=== PATIENT | female | born 1935 | race Caucasian/White ===

== ENCOUNTER 2016-07-31 11:37 | Emergency (ER) | payer OTHER, MEDICARE ==
[~2016-07-31] VITALS: Ht 152.4 cm; Wt 93.9 kg
[~2016-07-31 11:37] MED LIST: ALLOPURINOL100 M1 PO; ANTIVERT 25MG #1 PAC PO; ASPIRIN81 M4 PO; ATIVAN0.5 M1 PO; ATORVASTATIN CA10 MG PO; ATORVASTATIN CA40 MG PO; CELEBREX200 M1 PO; CELECOXIB200 MG PO; CYMBALTA30 M1 PO; DURAGESIC1 EACH TOP; DURAGESIC25 MCG TD; FUROSEMIDE20 M1 PO; HEPARIN 2525000 UNIT IV; HYDROCO/APAP TAB 7.5 PO; K-TAB ER20 MEQ PO; LANSOPRAZOLE30 M2 PO; LOPRESSOR 12.12.5 MG PO; LORTAB 7.5/5001 TAB PO; LOVAZA1 G1 PO; LYRICA75 M1 PO; MICARDIS80 M1 PO; MICARDIS80 MG PO; OS-CAL 500+D31 EACH PO; TOPROL XL25 M1 PO; VICODIN7.5-300 PO; [UNRECOGNIZED DRUG - OTHER] PO
[2016-07-31] MEDS ORDERED: DAILY MULTIPLE1 EACH PO (12:21)
[2016-07-31] MEDS ORDERED: ATORVASTATIN CA10 M1 PO (12:23)
[2016-07-31] MEDS ORDERED: HYDROCODON-ACE1 EAC6 PO (12:26)
[2016-07-31] MEDS ORDERED: MECLIZINE HCL25 MG PO ×2 (12:28→13:51)
[2016-07-31] MEDS ORDERED: MICARDIS HCT 81 EAC1 PO (12:30)
--- NOTE | 2016-07-31 13:04 | ED SKIN/ALLERGY COMPLAINT ---
History of Present Illness General Chief Complaint: General Adult Stated Complaint: VERTIGO Source: patient Exam Limitations: no limitations Vital Signs & Intake/Output Vital Signs & Intake/Output Vital Signs Date Time Temp Pulse Resp B/P B/P Pulse O2 O2 Flow FiO2 Mean Ox Delivery Rate 07/31 1354 96.2 60 18 136/75 100 Room Air 07/31 1147 95 07/31 1139 97.5 63 18 172/82 94 Room Air ED Intake and Output 08/01 0000 07/31 1200 Intake Total Output Total Balance Patient 207 lb Weight Allergies Coded Allergies: latex (HIVES 07/31/16) Reconcile Medications Allopurinol 100 MG TABLET 1 TAB PO DAILY GOUT (Reported) Aspirin (Aspirin*) 81 MG TAB.CHEW 1 TAB PO DAILY HEART HEALTH (Reported) Atorvastatin Calcium 10 MG TABLET 1 TAB PO DAILY CHOLESTEROL (Reported) Calcium Carbonate/Vitamin D3 (Os-Akil 500+D3 Caplet) 500 MG-600 TABLET 1 TAB PO BID SUPPLEMENT (Reported) Celecoxib (Celebrex) 200 MG CAPSULE 1 CAP PO BID PAIN (Reported) Duloxetine Hydrochloride (Cymbalta) 30 MG CAPSULE.DR 1 CAP PO DAILY DEPRESSION (Reported) Fentanyl (Duragesic) 25 MCG/HOUR PATCH.TD72 1 PAT TOP Q48 PAIN (Reported) Fluconazole (Diflucan) 100 MG TABLET 100 MG PO DAILY Anabella Furosemide 20 MG TABLET 1 TAB PO DAILY WATER PILL (Reported) Hydrocodone/Acetaminophen (Hydrocodon-Acetaminoph 7.5-300) 7.5 MG-300 MG TABLET 1 TAB PO DAILY PAIN (Reported) Lansoprazole 30 MG CAPSULE.DR 1 CAP PO DAILY GI (Reported) Lorazepam (Ativan) 0.5 MG TABLET 1 TAB PO DAILY ANXIETY (Reported) Meclizine HCl 25 MG TABLET 1 TAB PO TIDPRN PRN DIZZINESS (Reported) Meclizine HCl 25 MG TABLET 1 TAB PO TIDPRN vertigo Metoprolol Succ XL (Toprol XL) 25 MG TAB 1 TAB PO DAILY HEART (Reported) Multivitamin (Daily Multiple Vitamin) 1 EACH TABLET 1 TAB PO DAILY VITAMIN SUPPORT (Reported) Nystatin 50 MILLION UNIT POWDER.EA. 1 PATRICIA TOP BID anabella [place]-3 Acid Ethyl Esters (Lovaza) 1 GRAM CAPSULE 2 CAP PO BID SUPPLEMENT ( Reported) Potassium Chloride (K-Tab ER) 20 MEQ TABLET.ER 1 TAB PO DAILY SUPPLEMENT ( Reported) Pregabalin (Lyrica) 75 MG CAPSULE 1 CAP PO BID PAIN (Reported) Telmisartan/Hydrochlorothiazid (Micardis Hct 80-25 MG Tablet) 80 MG-25 MG TABLET 1 TAB PO BID BP (Reported) Triage Note: BIBA FROM HOME C/O VERTIGO WITH HX OF SAME AND RED ITCHY RASH FOR SEVERAL DAYS TO RIGHT ABD/FLANK. PT REPORTS SHE HAS A HX OF VERTIGO, WAS UNABLE TO MAKE APPT WITH HER ENT AND IS C/O POSITIONAL DIZZINESS. ALSO C/O "THE ITCHING IS GETTING WORSE" TO THE RASH WHICH IS RED AND NOT RAISED, USING TOPICAL OTC OINTMENTS WITH NO RELIEF, DENIES ANY SYSTEMIC/RESP SYMPTOMS "I JUST HAD MY PULMONARY AND CARDIAC CHECKUPS AND EVERYTHING WAS GREAT." Triage Nurses Notes Reviewed? yes HPI: 81 yo F PMH HTN, HLD,CAD/PR, meningioma presenting with vertigo, rash. Vertigo starting last night while watching TV, patient turned her head to the left and had onset of dizziness, described as room spinning, waxing and waning intensity since that time, triggered by head movements, similar to previous episodes of vertigo. Denies fevers, chills, chest pain, palpitations, shortness of breath, neck pain, headache, or focal neurologic symptoms. Rash starting 3-4 days ago, began in intertriginous zone on lower abdomen, spread of right side, now underneath right breast, pruritic but not painful. (DANIEL POZO,SAMUEL) Past History Travel History Traveled to [place] past 21 day No Medical History Any Pertinent Medical History? 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 Yes (SAMUEL SANCHEZ MD) Review of Systems Review of Systems Constitutional: Reports: no symptoms. EENTM: Reports: no symptoms. Respiratory: Reports: no symptoms. Cardiovascular: Reports: no symptoms. GI: Reports: no symptoms. Genitourinary: Reports: no symptoms. Musculoskeletal: Reports: no symptoms. Skin: Reports: dryness, erythema. Neurological/Psychological: Reports: no symptoms. Hematologic/Endocrine: Reports: no symptoms. Immunologic/Allergic: Reports: no symptoms. (DANIEL POZO,SAMUEL) Physical Exam Physical Exam General Appearance: well developed/nourished, no apparent distress, alert, awake Head: atraumatic, normal appearance Eyes: Bilateral: normal appearance. Ears, Nose, Throat: normal pharynx, normal ENT inspection Neck: supple, full range of motion Respiratory: normal breath sounds, no respiratory distress Cardiovascular: regular rate/rhythm, normal peripheral pulses Gastrointestinal: normal bowel sounds, soft, non-tender Neurologic/Psych: no motor/sensory deficits, awake, alert, oriented x 3 Comments: Neurologic: 1-2 beats of directional nystagmus with leftward and gaze, otherwise cranial nerves II through XII intact, normal hpfgwi-[id number] and heel to davis testing, no pronator drift, normal strength throughout, no sensory deficits Skin: Erythematous, excoriated, dry macular rash intertriginous zones underneath bilateral stomach, underneath right abdominal skin folds, underneath right breast, not warm to touch, no tenderness to palpation, no purulent drainage (DANIEL POZO,SAMUEL) Progress Differential Diagnosis: abscess/cellulitis, contact dermatitis, drug reaction, shingles Plan of Care: Current Medications Sig/Han Start time Last Medication Dose Stop Time Status Admin Nystatin 1 PATRICIA ONCE ONE 07/31 1245 UNVr (Mycostatin) 07/31 1246 Physician MDM: 81 yo F PMH HTN, HLD, CAD/PR, Menigioma presenting with dizziness , rash. VSS, afebrile, remainder of exam as above. DDx: Peripheral vertigo, low concern for central vertigo, rash most likely candidal infection, less likely cellulitis, low concern for necrotizing fasciitis, EM, TEN, SJS, DRESS. Given meclizine with complete resolution of dizziness, on reexamination ambulatory with even gait without assistance, no nausea or vomiting. Nystatin powder and oral fluconazole for candidal rash, first dose given ED. Given low concern for cellulitis, patient well-appearing with normal vital signs, discharged with nystatin topical, given return to care precautions, plan to follow up with PMD in the next 2-3 days for further evaluation. (DANIEL POZO,SAMUEL) Departure Departure Disposition: HOME OR SELF CARE Condition: Stable Clinical Impression Primary Impression: Candidal intertrigo Referrals: DIPAK WILLIS MD (PCP/Family) Additional Instructions: Use topical nystatin powder. Take fluconazole 100 mg daily. Use Benadryl for itching. Use meclizine for residual vertigo, avoid use with Benadryl as both medications are sedating. Follow-up with her primary care doctor in the next 2-3 days. Return to the Emergency department for any new, worsening, or concerning symptoms. Departure Forms: Customer Survey General Discharge Information Prescriptions: Current Visit Scripts Meclizine HCl 1 TAB PO TIDPRN #30 TAB Nystatin 1 PATRICIA TOP BID #30 Fluconazole (Diflucan) 100 MG PO DAILY #14 (DANIEL POZO,SAMUEL) Resident Co-Sign Statement Statement: ED Attending supervision documentation- [X] I saw and evaluated the patient. I have also reviewed all the pertinent lab results and diagnostic results. I agree with the findings and the plan of care as documented in the Resident's documentation. [X] I have reviewed the ED Record and agree with the Resident's documentation. [] Additions or exceptions (if any) to the Resident's note and plan are summarized below: [] (ALYCE POZO,NATANAEL Cintron)
[2016-07-31] MEDS ORDERED: [UNRECOGNIZED DRUG - CODE] TOP (13:51)
[2016-07-31] MEDS ORDERED: DIFLUCAN100 M1 PO (13:51)
[2016-07-31 13:54] VITALS: BP 136/75
== END 2016-07-31 14:10 ==
LOC: ERH 11:37
DX: B37.2 Candidiasis of skin and nail (principal)

== ENCOUNTER 2016-08-07 12:43 | Emergency (ER) | payer OTHER, MEDICARE ==
[~2016-08-07 12:43] MED LIST changes: +ATORVASTATIN CA10 M1 PO; +DAILY MULTIPLE1 EACH PO; +DIFLUCAN100 M1 PO; +HYDROCODON-ACE1 EAC6 PO; +MECLIZINE HCL25 MG PO; +MICARDIS HCT 81 EAC1 PO; +[UNRECOGNIZED DRUG - CODE] TOP
--- NOTE | 2016-08-07 15:08 | ED AMS/SEIZURE/WEAK/DIZZY ---
History of Present Illness General Chief Complaint: General Adult Stated Complaint: PT IS DIZZY AND HAS BITES ON THE BODY Source: patient Exam Limitations: no limitations Vital Signs & Intake/Output Vital Signs & Intake/Output Vital Signs Date Time Temp Pulse Resp B/P B/P Pulse O2 O2 Flow FiO2 Mean Ox Delivery Rate 08/07 1935 96.3 86 20 147/68 99 Room Air 08/07 1432 63 20 137/67 95 Room Air 08/07 1256 97.6 78 22 145/82 97 ED Intake and Output 08/08 0000 08/07 1200 Intake Total Output Total Balance Patient 212 lb Weight Allergies Coded Allergies: latex (HIVES 07/31/16) Triage Note: PT SEEN LAST WEEK FOR DIZZYNESS, GIVEN 2 MEDS AND NOW DIZZYNESS BETTER, BUT HAS BITES, AND BILAT LEGS RED. PT THOUGHTS ARE SCATTERED, UNABLE TO COMPLETE SENTENCE AND CHANGES TOPIC Triage Nurses Notes Reviewed? yes HPI: Patient presents for evaluation of dizziness and bug bites. She states she was seen 2 days ago for dizziness and a rash over the right side of the trunk. She was treated with prescriptions for meclizine and Diflucan. She states that the rash is beginning to resolve. However she is still feeling the dizziness despite the use of meclizine. She states she began to feel somewhat disoriented and then receiveD the "bites" all over her body. She denies having pets but admits she has aunts at home (she has contacted an manager apple). She does to having a poor PO intake with no associated fever or cold symptoms. (MANNY POZO,VIVEK [place]) Reconcile Medications Allopurinol 100 MG TABLET 1 TAB PO DAILY GOUT (Reported) Aspirin (Aspirin*) 81 MG TAB.CHEW 1 TAB PO DAILY HEART HEALTH (Reported) Atorvastatin Calcium 10 MG TABLET 1 TAB PO DAILY CHOLESTEROL (Reported) Augmentin (Augmentin 500-125 Tablet) 500 MG-125 MG TABLET 1 TAB PO TID INFECTION Calcium Carbonate/Vitamin D3 (Os-Akil 500+D3 Caplet) 500 MG-600 TABLET 1 TAB PO BID SUPPLEMENT (Reported) Celecoxib (Celebrex) 200 MG CAPSULE 1 CAP PO BID PAIN (Reported) Duloxetine Hydrochloride (Cymbalta) 30 MG CAPSULE.DR 1 CAP PO DAILY DEPRESSION (Reported) Fentanyl (Duragesic) 25 MCG/HOUR PATCH.TD72 1 PAT TOP Q48 PAIN (Reported) Fluconazole (Diflucan) 100 MG TABLET 100 MG PO DAILY Anabella Furosemide 20 MG TABLET 1 TAB PO DAILY WATER PILL (Reported) Hydrocodone/Acetaminophen (Hydrocodon-Acetaminoph 7.5-300) 7.5 MG-300 MG TABLET 1 TAB PO DAILY PAIN (Reported) Lansoprazole 30 MG CAPSULE.DR 1 CAP PO DAILY GI (Reported) Lorazepam (Ativan) 0.5 MG TABLET 1 TAB PO DAILY ANXIETY (Reported) Meclizine HCl 25 MG TABLET 1 TAB PO TIDPRN PRN DIZZINESS (Reported) Meclizine HCl 25 MG TABLET 1 TAB PO TIDPRN vertigo Metoprolol Succ XL (Toprol XL) 25 MG TAB 1 TAB PO DAILY HEART (Reported) Multivitamin (Daily Multiple Vitamin) 1 EACH TABLET 1 TAB PO DAILY VITAMIN SUPPORT (Reported) Nystatin 50 MILLION UNIT POWDER.EA. 1 PATRICIA TOP BID anabella [place]-3 Acid Ethyl Esters (Lovaza) 1 GRAM CAPSULE 2 CAP PO BID SUPPLEMENT ( Reported) Potassium Chloride (K-Tab ER) 20 MEQ TABLET.ER 1 TAB PO DAILY SUPPLEMENT ( Reported) Pregabalin (Lyrica) 75 MG CAPSULE 1 CAP PO BID PAIN (Reported) Telmisartan/Hydrochlorothiazid (Micardis Hct 80-25 MG Tablet) 80 MG-25 MG TABLET 1 TAB PO BID BP (Reported) (JAJA POZO,CHASE Ackerman) Past History Travel History Traveled to [place] past 21 day No Medical History Any Pertinent Medical History? 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 No (MANNY POZO,VIVEK [place]) Review of Systems Review of Systems Constitutional: Reports: no symptoms. EENTM: Reports: no symptoms. Respiratory: Reports: no symptoms. Cardiovascular: Reports: no symptoms. GI: Reports: no symptoms. Genitourinary: Reports: no symptoms. Musculoskeletal: Reports: no symptoms. Skin: Reports: see HPI. Neurological/Psychological: Reports: confusion. Hematologic/Endocrine: Reports: no symptoms. Immunologic/Allergic: Reports: no symptoms. All Other Systems: Reviewed and Negative (MANNY POZO,VIVEK Phoenix) Physical Exam Physical Exam General Appearance: SEE BELOW Comments: Gen.: Well-nourished, well-developed, no acute respiratory distress. Head: Normocephalic, atraumatic. Eyes: Normal inspection bilaterally Ears: Normal inspection bilaterally Nose: Normal inspection Throat/mouth : Moist mucosa Neck: Supple, full range of motion, no goiter Heart: Regular rate and rhythm, soft systolic murmur Lungs: Clear to auscultation bilaterally with normal air entry Chest: Nontender Back: Normal range of motion Abdomen: Soft, nontender, nondistended, normal bowel sounds Extremities: Normal range of motion grossly, equal radial pulses, no cyanosis clubbing or edema Neurologic: Cranial nerves grossly intact, speech is clear Skin: warm and dry, scattered mildly erythematous macules (many excoriated) of the extremities and face, beefy-red well-defined rash of the intertriginous folds over the right abdomen Psychiatric: Calm, cooperative, no apparent delusions or hallucinations Core Measures ACS in differential dx? No CVA/TIA Diagnosis: No Severe Sepsis Present: No Septic Shock Present: No (MANNY POZO,VIVEK Phoenix) Progress Differential Diagnosis: anemia, dehydration, electrolyte imbalance, hypoglycemia , hypoxia, DEPRESSION Plan of Care: Orders Procedure Date/time Status MISTAKE 08/07 1508 Active URINALYSIS 08/07 1508 Complete THYROID STIMULATING HORMONE 08/07 1508 Complete CBC WITHOUT DIFFERENTIAL 08/07 1508 Complete BASIC METABOLIC PANEL 08/07 1508 Complete EKG 08/07 1508 Active Laboratory Tests 08/07/16 1700: Urine Color YEL, Urine Clarity CLEAR, Urine pH 6.0, Ur Specific [place] 1.015, Urine Protein TRACE H, Urine Ketones NEG, Urine Nitrite NEG, Urine Bilirubin NEG, Urine Urobilinogen 0.2, Ur Leukocyte Esterase MOD H, Ur Microscopic SEDIMENT EXAMINED, Urine RBC 3-5, Urine WBC 5-10 H, Ur Epithelial Cells MANY H , Urine Bacteria MOD H, Urine Hemoglobin SMALL H, Urine Glucose NEG 08/07/16 1520: Anion Gap 11, Estimated GFR 29 L, BUN/Creatinine Ratio 32.4 H, Glucose 78, Calcium 9.2, TSH 1.470, CBC w Diff NO MAN DIFF REQ, RBC 4.37, MCV 88.0, MCH 29.8 , RDW 14.1, MPV 9.9, Gran % 64.8, Lymphocytes % 24.5, Monocytes % 4.6, Eosinophils % 5.7 H, Basophils % 0.4, Absolute Granulocytes 4.9, Absolute Lymphocytes 1.8, Absolute Monocytes 0.3, Absolute Eosinophils 0.4, Absolute Basophils 0, PUBS MCHC 33.8 Diagnostic Imaging: Discussed w/RAD: CT Scan. Radiology Impression: PATIENT: PAU BAJWA PRESENT AGE: 81 PATIENT ACCOUNT NO: [id number] : 37 LOCATION: [facility] ORDERING PHYSICIAN: VIVEK NICHOLAS MD SERVICE DATE: 08/07/16 EXAM TYPE: CAT - CT HEAD WO IV CONTRAST EXAMINATION: CT HEAD WITHOUT CONTRAST CLINICAL INFORMATION: Dizziness. History of prior resected meningioma. COMPARISON: 04/17/2015. TECHNIQUE: Contiguous axial images of the brain were obtained without IV contrast. DLP: 621 mGy-cm. FINDINGS: There are no pathologic extra-axial fluid collections. The lateral, third, fourth ventricles are mildly prominent, but stable, age-appropriate and concordant with the appearance of the sulci. There is no evidence for acute intraparenchymal hemorrhage or infarct. Encephalomalacia within the left frontal lobe is stable. There is neither mass nor mass effect. There is no shift of midline structures. The paranasal sinuses and mastoid air cells are clear. There are no osseous lesions. Postsurgical changes within the left frontal bone are stable. IMPRESSION: No evidence for acute intracranial injury. Stable appearance of the brain. DICTATED BY: DAIANA DUMONT MD DATE/TIME DICTATED:08/07/161629 GLUED WOOD TESTER:DA DATE/ TIME TRANSCRIBED:08/07/161629 CONFIDENTIAL, DO NOT COPY WITHOUT APPROPRIATE AUTHORIZATION. <Electronically signed in Other Vendor System> SIGNED BY: DAIANA DUMONT MD 08/07/161636 Initial ED EKG: none Comments: 08/07/2016 6:00:05 PM I have updated Pau on her test results. Given the elevation in her creatinine I will give her intravenous fluids here in the emergency department. Although the underlying nature of the macular lesions of the skin is unclear I will cover with antibiotics for the possibility of folliculitis. The patient has bilateral lower extremity skin erythema I think more consistent with stasis dermatitis than cellulitis but the antibiotics would treat a lower extremity cellulitis as well. The patient has declined admission favoring outpatient management. The patient's family present during update and agree with the plan. 08/07/2016 7:39:20 PM patient signed out to Dr. 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 (MANNY POZO,VIVEK Phoenix) Departure Departure Disposition: HOME OR SELF CARE Condition: Stable Clinical Impression Primary Impression: ALEXA (acute kidney injury) Secondary Impressions: Furunculosis of multiple sites, Stasis dermatitis of both legs Referrals: DIPAK RIVERA MD (PCP/Family) Additional Instructions: Augmentin as prescribed. Follow-up with Dr. Rivera on Wednesday for reevaluation of the skin rashes. Maintained a good fluid intake, enough to turn your urine "white", until follow-up. Return if any concerns or sudden worsening. Please note that there might be incidental findings in your evaluation that are unrelated to the current emergency department visit. Please notify your primary care doctor about this emergency department visit in order to obtain and review all of the testing performed so that these incidental findings can be monitored as needed. If you had an x-ray performed, please understand that some fractures may not be seen on the initial set of x-rays. If your symptoms persist you might need a repeat set of x-rays to check for such a fracture. If you had a laceration evaluated, please understand that foreign bodies such as glass or wood may not be visible to the naked eye or on plain x-rays. If the wound becomes red, swollen, increasingly more painful or if there is any drainage from the wound, please have it reevaluated by a physician for the possibility of a retained foreign body. Thank you for choosing the [facility] Emergency Department for your care. It was a pleasure to serve you today. Vivek Nicholas M.D. [facility] Departure Forms: Customer Survey General Discharge Information Prescriptions: Current Visit Scripts Augmentin (Augmentin 500-125 Tablet) 1 TAB PO TID #21 TAB (MANNY POZO,VIVEK Phoenix) PA/RACKING TECHNICIAN Co-Sign Statement Statement: ED Attending supervision documentation- [] I saw and evaluated the patient. I have also reviewed all the pertinent lab results and diagnostic results. I agree with the findings and the plan of care as documented in the PA's/RACKING TECHNICIAN's documentation. [x] I have reviewed the ED Record and agree with the PA's/RACKING TECHNICIAN's documentation. [] Additions or exceptions (if any) to the PAs/RACKING TECHNICIAN's note and plan are summarized below: [] (JAJA POZO,CHASE Ackerman)
[2016-08-07 15:31] LABS: ABSOLUTE BASOPHIL COUNT 0 /CUMM (0.0-0.2); ABSOLUTE EOSINOPHIL COUNT 0.4 /CUMM (0.0-0.7); ABSOLUTE GRANULOCYTE CT 4.9 /CUMM (1.4-6.5); ABSOLUTE LYMPH COUNT 1.8 /CUMM (1.2-3.4); ABSOLUTE MONOCYTE COUNT 0.3 /CUMM (0.10-0.60); BASOPHIL % 0.4 % (0.0-2.0); EOSINOPHIL % 5.7 % (0-5); GRANULOCYTE % 64.8 % (42.2-75.2); HEMATOCRIT 38.5 % (37-47); MEAN CORPUSCULAR HGB 29.8 PG (27.0-31.0); MEAN CORPUSCULAR HGB CONC 33.8 G/DL (33.0-37.0); MEAN PLATELET VOLUME 9.9 FL (7.4-10.4); PLATELET COUNT 134 /CUMM (130-400); RBC DISTRIBUTION WIDTH 14.1 % (11.5-14.5); RED BLOOD CELL CT 4.37 /CUMM (4.20-5.40); WHITE BLOOD CELL COUNT 7.5 /CUMM (4.8-10.8)
--- NOTE | 2016-08-07 16:37 | CT SCAN REPORT ---
EXAMINATION: CT HEAD WITHOUT CONTRAST CLINICAL INFORMATION: Dizziness. History of prior resected meningioma. COMPARISON: 04/17/2015. TECHNIQUE: Contiguous axial images of the brain were obtained without IV contrast. DLP: 621 mGy-cm. FINDINGS: There are no pathologic extra-axial fluid collections. The lateral, third, fourth ventricles are mildly prominent, but stable, age-appropriate and concordant with the appearance of the sulci. There is no evidence for acute intraparenchymal hemorrhage or infarct. Encephalomalacia within the left frontal lobe is stable. There is neither mass nor mass effect. There is no shift of midline structures. The paranasal sinuses and mastoid air cells are clear. There are no osseous lesions. Postsurgical changes within the left frontal bone are stable. IMPRESSION: No evidence for acute intracranial injury. Stable appearance of the brain.
[2016-08-07 19:35] VITALS: BP 147/68
[2016-08-07] MEDS ORDERED: AUGMENTIN 500-1 EACH PO (19:44)
== END 2016-08-07 21:06 ==
LOC: ERH 12:43
PROVIDERS: Emergency Medicine
DX: N17.9 Acute kidney failure, unspecified (principal); L02.92 Furuncle, unspecified; I87.2 Venous insufficiency (chronic) (peripheral); I10 Essential (primary) hypertension; E78.5 Hyperlipidemia, unspecified
CPT/HCPCS: 81001; 93005; 93010; 96361; 96374

== ENCOUNTER 2017-05-19 10:22 | Inpatient (IN) | payer OTHER ==
[~2017-05-19] VITALS: Ht 152.4 cm; Wt 101.8 kg
[~2017-05-19 10:22] MED LIST changes: +AUGMENTIN 500-1 EACH PO
--- NOTE | 2017-05-19 10:28 | ED MVC/FALL/TRAUMA COMPLAINT ---
History of Present Illness General Chief Complaint: Fall Stated Complaint: FALL LAST PM, ON FLOOR SINCE Allergies Coded Allergies: latex (HIVES 05/19/17) Reconcile Medications Allopurinol 100 MG TABLET 1 TAB PO DAILY GOUT (Reported) Aspirin (Aspirin*) 81 MG TAB.CHEW 1 TAB PO DAILY HEART HEALTH (Reported) Atorvastatin Calcium 10 MG TABLET 1 TAB PO DAILY CHOLESTEROL (Reported) Calcium Carbonate/Vitamin D3 (Os-Akil 500+D3 Caplet) 500 MG-600 TABLET 1 TAB PO BID SUPPLEMENT (Reported) Celecoxib (Celebrex) 200 MG CAPSULE 1 CAP PO BID PAIN (Reported) Duloxetine Hydrochloride (Cymbalta) 30 MG CAPSULE.DR 1 CAP PO DAILY DEPRESSION (Reported) Fentanyl (Duragesic) 25 MCG/HOUR PATCH.TD72 1 PAT TOP Q48 PAIN (Reported) Furosemide 20 MG TABLET 1 TAB PO DAILY WATER PILL (Reported) Hydrocodone/Acetaminophen (Hydrocodon-Acetaminoph 7.5-300) 7.5 MG-300 MG TABLET 1 TAB PO DAILY PAIN (Reported) Lansoprazole 30 MG CAPSULE.DR 1 CAP PO DAILY GI (Reported) Lorazepam (Ativan) 0.5 MG TABLET 1 TAB PO DAILY ANXIETY (Reported) Meclizine HCl 25 MG TABLET 1 TAB PO TIDPRN PRN DIZZINESS (Reported) Metoprolol Succ XL (Toprol XL) 25 MG TAB 1 TAB PO DAILY HEART (Reported) Multivitamin (Daily Multiple Vitamin) 1 EACH TABLET 1 TAB PO DAILY VITAMIN SUPPORT (Reported) [place]-3 Acid Ethyl Esters (Lovaza) 1 GRAM CAPSULE 2 CAP PO BID SUPPLEMENT ( Reported) Potassium Chloride (K-Tab ER) 20 MEQ TABLET.ER 1 TAB PO DAILY SUPPLEMENT ( Reported) Pregabalin (Lyrica) 75 MG CAPSULE 1 CAP PO BID PAIN (Reported) Telmisartan/Hydrochlorothiazid (Micardis Hct 80-25 MG Tablet) 80 MG-25 MG TABLET 1 TAB PO BID BP (Reported) Duration: SINCE LAST NIGHT Severity: moderate, severe Injuries/Fall Location: head, back, pelvis Method of Injury: fall, ? SYNCOPE Loss of Consciousness: prolonged (minutes) No Modifying Factors: none Associated Symptoms: confusion (Radha POZO,Jenise) General Source: patient, EMS Exam Limitations: physical impairment Vital Signs & Intake/Output Vital Signs & Intake/Output Vital Signs Date Time Temp Pulse Resp B/P B/P Pulse O2 O2 Flow FiO2 Mean Ox Delivery Rate 05/20 0711 97.5 60 18 128/74 95 Room Air 05/19 2219 98.1 60 19 114/76 92 05/19 2048 58 112/54 05/19 1800 98.1 60 18 150/82 98 Room Air 05/19 1616 98.6 62 18 148/84 98 Room Air 05/19 1318 98.2 77 18 146/88 98 Room Air ED Intake and Output 05/20 0000 05/19 1200 Intake Total 400 0 Output Total 1100 Balance -700 0 Intake, IV 250 Intake, Oral 150 0 Output, Urine 1100 Patient 224 lb Weight Weight Bed scale Measurement Method Triage Nurses Notes Reviewed? yes HPI: 82 yo F with PMHx of spinal stenosis, HTN, NJ, vertigo, presented to the ED by EMS after having an unwitnessed fall. She was in her usual state of health taking her nightly medications (Meclazine, Fentanyl) around 8:30pm when she was cleaning up the kitchen. She does not recall what happened after but she thinks her walker got caught onto the stove and caused her to fall backwards. The fall took place around 11pm last night and states between 8:30-11pm she was cleaning up the kitchen. Pt states she did not call 911 until this morning due to feeling disoriented even having a In[employer]ial[employer] buzzer and cell phone nearby. She denies tongue biting or hitting her head, but claims to be in and out "of sleep" but is unsure if there was an episode of urinary/bowel incontinence. Currently, she endorses a burning like pain from her sacrum radiating down her left leg. Currently she denies any headache, blurry vision, neck pain, chest pain, sob or abdominal pain. This started about 1-2 weeks ago and has caused discomfort walking since then. At baseline she is AAOx4, walks with a walker, lives alone and no difficulty with ADLs or IDLs. 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 see below for history Family History Hx Contributory? No (Arjun STUDENTBrody) Review of Systems Review of Systems Musculoskeletal: Reports: back pain. Skin: Denies: rash. Neurological/Psychological: Reports: confusion, headache. Denies: anxiety. (Jenise Garcia MD) Review of Systems Constitutional: Reports: see HPI. Ears, Nose, Throat, Mouth: Reports: see HPI. Respiratory: Denies: short of breath. Cardiovascular: Reports: see HPI. Denies: chest pain. Gastrointestinal/Abdominal: Denies: abdominal pain. Genitourinary: Reports: see HPI. (Arjun STUDENTBrody) Physical Exam Physical Exam General Appearance: well developed/nourished, alert, awake, mild distress, moderate distress Head: atraumatic, normal appearance Eyes: Bilateral: EOMI. Ears, Nose, Throat, Mouth: hearing grossly normal, DRY MUCUS MEMBRANES Neck: normal inspection, supple, full range of motion Respiratory: normal breath sounds, chest non-tender, no respiratory distress Cardiovascular: regular rate/rhythm, normal peripheral pulses Peripheral Pulses: 2+ radial (R), 2+ radial (L), 2+ dorsalis pedis (R), 2+ dorsalis pedis (L) Gastrointestinal: normal bowel sounds, soft, non-tender Extremities: normal range of motion, PAIN WITH LEFT LEG ELEVATION, LEFT LEG SWELLING Neurologic/Psych: no motor/sensory deficits, awake, alert, oriented x 3 Skin: intact, normal color, warm/dry Core Measures ACS in differential dx? Yes CVA/TIA Diagnosis No Sepsis Present: No Sepsis Focused Exam Completed? No (Jenise Garcia MD) Progress Differential Diagnosis: C/T/L spine injury, ext injury, ICH, Cardiac arrythmia, PE syncopal episode, vasodepressor/vasovagal, orthostatic hypotension, hypoglycemia, TIA/TSI, seizure, PELVIC FRACTURE Diagnostic Imaging: Viewed by Me: Radiology Read, CT Scan, Ultrasound. Discussed w/RAD: Radiology Read, CT Scan, Ultrasound. Radiology Impression: PATIENT: HALIE BAJWA PRESENT AGE: 82 PATIENT ACCOUNT NO: [id number] : 37 LOCATION: [facility] ORDERING PHYSICIAN: Jenise Garcia MD SERVICE DATE: 05/19/17 EXAM TYPE: US - US- UNILATERAL VENOUS DOPPLER EXAMINATION: US TRIPLEX LOWER EXTREMITY, LEFT CLINICAL INFORMATION: Swelling COMPARISON: None TECHNIQUE: Color-flow triplex imaging with spectral analysis and compression Doppler were performed on the lower extremity. FINDINGS: Respiratory variation, normal compression and augmented flow are noted throughout the lower extremity. The visualized common femoral vein, superficial femoral vein, profunda femoral vein, popliteal vein show no evidence of deep venous thrombosis. The calf veins are not reliably evaluated. Study limited due to patient body habitus. There is no Bishop's cyst. IMPRESSION: No evidence of deep venous thrombosis involving the lower extremity extending from the common femoral vein to the popliteal vein. Calf veins could not be evaluated.. DICTATED BY: Jamie Iniguez MD DATE/TIME DICTATED:05/19/171308 SOFTWARE APPLICATIONS ENGINEER:DA DATE/TIME TRANSCRIBED:05/19/171308 CONFIDENTIAL, DO NOT COPY WITHOUT APPROPRIATE AUTHORIZATION. <Electronically signed in Other Vendor System> SIGNED BY: Jamie Iniguez MD 05/19/17 1341, PATIENT: HALIE BAJWA PRESENT AGE: 82 PATIENT ACCOUNT NO: [id number] : 37 LOCATION: [facility] ORDERING PHYSICIAN: Jenise Garcia MD SERVICE DATE: 05/19/171106 EXAM TYPE: CAT - CT HEAD WO IV CONTRAST; CT PELVIS WO IV CONTRAST CT HEAD WITHOUT CONTRAST CT OF THE PELVIS WITHOUT CONTRAST CLINICAL INFORMATION: Trauma. Head injury. Sacral pain. 82-year-old female patient. COMPARISON: CT exams of the brain done July 2010, March 2015, and July 2016. TECHNIQUE: Contiguous axial imaging was performed from the skull base to vertex without intravenous administration of contrast. Contiguous axial scans of the pelvis and both hips. DLP: 842 mGy-cm for pelvis. 722 mGy-cm for brain FINDINGS: HEAD: Forklift Mechanic: There is extensive hyperostosis interna frontalis. Postop craniotomy changes are evident in the left frontal region. The small right sphenoid wing meningioma is stable. There is chronic encephalomalacia and gliosis involving the left frontal lobe. This is stable. Dural calcifications are present. The left frontal bone flap is stable in position. No hardware failure. Dural and tentorial calcifications are present. No evidence of acute intracranial hemorrhage. No abnormal mass effect or midline shift. Powers to white matter differentiation is preserved without evidence of acute territorial infarction. No extra-axial fluid collections are identified. No hydrocephalus. No acute abnormalities in the osseous structures and extracranial soft tissues. The mastoid air cells and visualized portions of the paranasal sinuses are well aerated. PELVIS: Forklift Mechanic: There is extensive degenerative disc disease of the lumbar spine and significant osteoarthritis of the right hip. No acute fracture or dislocation is detected. The deformed femoral head is partially subluxed from the abnormal right acetabulum. Juxta-articular lucencies are present both in the acetabulum and the proximal femur. Loose bodies are present in the right hip joint. A joint effusion is also seen. The sacrum is normal. The bladder is distended and normal. The postmenopausal uterus contains a number of small calcified fibroids. There is moderate stool impaction in the rectosigmoid colon. There is no sign of pelvic hematoma formation. IMPRESSION: 1. No acute intracranial pathology. 2. Stable right sphenoid wing meningioma. 3. Encephalomalacia left frontal lobe, stable. 4. Severe osteoarthritis of the right hip with partial subluxation and numerous juxta-articular lucencies. Loose bodies are present in the right hip joint. No acute fracture. There is a right hip joint effusion. DICTATED BY: Gato Boo MD DATE/TIME DICTATED:1317 SOFTWARE APPLICATIONS ENGINEER:DA DATE/TIME TRANSCRIBED:05/19/171317 CONFIDENTIAL, DO NOT COPY WITHOUT APPROPRIATE AUTHORIZATION. <Electronically signed in Other Vendor System> SIGNED BY: Gato Boo MD 05/19/17 1341 Initial ED EKG: NSR, LAD (Radha POZO,Jenise) Differential Diagnosis: Cardiac arrythmia, PE syncopal episode, vasodepressor/ vasovagal, orthostatic hypotension, hypoglycemia, TIA/TSI, seizure Plan of Care: Orders Procedure Date/time Status CREATINE PHOSPHOKINASE 05/20 599 Complete CBC WITHOUT DIFFERENTIAL 05/20 599 Complete BASIC ELECTROLYTES PLUS BUN&CR 05/20 599 Complete LUNG SCAN (V/Q) 05/20 UNK Active LUNG SCAN (V/Q) 05/20 UNK Active PHARMACY COMMUNICATION FORM 05/20 UNK Active MISSING MEDICATION FORM 05/20 UNK Active Heart Healthy Diet 05/19 D Active MISSING MEDICATION FORM 05/19 2023 Active Turn and Reposition 05/19 183 Active Skin Integrity Protocol 05/19 1832 Active Skin/Pressure Ulcer Assess (Sk 05/19 1832 Active NUTRITIONAL CONSULT 05/19 1832 Active Vital Signs 05/19 1820 Active Teach/Educate 05/19 1820 Active Pain Treatment and Response 05/19 1820 Active Nutritional Intake, Monitor 05/19 182 Active Isolation 05/19 1820 Active Intake & Output 05/19 182 Active Patient Care Conference 05/19 1820 Active Activity/Ambulation 05/19 1820 Active Patient Data 05/19 1631 Active Pathway - chart 05/19 1557 Active House Staff 05/19 1557 Active Patient Data 05/19 1557 Active Code Status 05/19 1557 Active Patient Data 05/19 1508 Active ED Holding Orders 05/19 1454 Active Admit to inpatient 05/19 1454 Active Vital Signs 05/19 1454 Active Code Status 05/19 1454 Complete D-DIMER 05/19 1202 Complete URINE DRUGS OF ABUSE 05/19 1132 Complete Intake & Output 05/19 1128 Active Telemetry/Ship'S Cook 05/19 1106 Active PT Evaluate & Treat 05/19 UNK Active Lab Add-on Test 05/19 UNK Active VTE Mechanical Prophylaxis 05/19 UNK Active MISTAKE 05/19 UNK Complete Telemetry/Ship'S Cook 05/19 UNK Active SOCIAL WORK CONSULT 05/19 UNK Active PSYCHIATRIC CONSULT 05/19 UNK Active PHYSICIAN CONSULT 05/19 UNK Active Current Medications Sig/Han Start time Last Medication Dose Stop Time Status Admin Fentanyl Citrate 25 MCG Q48 05/21 1000 AC (Duragesic) Atorvastatin Calcium 10 MG 05/20 AC (Lipitor) Duloxetine HCl 30 MG 05/20 AC (Cymbalta) Lorazepam 0.5 MG 05/20 220 AC (Ativan) 05/27 2159 Metoprolol Succinate 25 MG 05/20 AC (Toprol XL) Aspirin 81 MG DAILY 05/20 1000 AC 05/20 (Aspirin) 0819 Furosemide 20 MG DAILY 05/20 1000 AC 05/20 (Lasix) 0818 Polyethylene Glycol 17 GM DAILY NEEDED PRN 05/20 0815 AC (Miralax) Senna/Docusate Sodium 2 TAB DAILY NEEDED PRN 05/20 0815 AC (Senokot S) Omeprazole 20 MG DAILY AC 05/20 0700 AC 05/20 (Prilosec) 0521 Calcium Carbonate 500 MG BID 05/19 220 AC 05/20 (Os-Akil 500 MG Tab) 0818 Celecoxib 200 MG BID 05/19 2199 AC 05/20 (Celebrex 200MG Cap) 08 Pregabalin 75 MG BID 05/19 220 AC 05/20 (Lyrica) 0819 Meclizine HCl 25 MG TIDPRN PRN 05/19 184 AC 05/20 (Antivert) 0843 Oxycodone/ 1 TAB Q4P PRN 05/19 184 AC 05/20 Acetaminophen 0818 (Percocet) Allopurinol 100 MG DAILY 05/19 183 AC 05/19 (Zyloprim) 2047 Laboratory Tests 05/20/17 0647: Anion Gap 10, Estimated GFR 33 L, BUN/Creatinine Ratio 37.3 H, Creatine Kinase 128, CBC w Diff NO MAN DIFF REQ, RBC 3.88 L, MCV 90.4, MCH 30.6, MCHC 33.9, RDW 13.7, MPV 9.9, Gran % 58.8, Lymphocytes % 29.2, Monocytes % 4.7, Eosinophils % 6.8 H, Basophils % 0.5, Absolute Granulocytes 3.5, Absolute Lymphocytes 1.7, Absolute Monocytes 0.3, Absolute Eosinophils 0.4, Absolute Basophils 0 05/19/17 1315: Urine Opiates Screen 543, Methadone Screen < 40, Barbiturate Screen < 60, Ur Phencyclidine Scrn < 6.00, Amphetamines Screen < 100, U Benzodiazepines Scrn < 85, Urine Cocaine Screen < 50, Urine Cannabis Screen < 5.00, Urine Color YEL, Urine Clarity CLEAR, Urine pH 7.0, Ur Specific [place] 1.010, Urine Protein NEG, Urine Ketones NEG, Urine Nitrite NEG, Urine Bilirubin NEG, Urine Urobilinogen 0.2, Ur Leukocyte Esterase NEG, Ur Microscopic EXAM NOT REQUIRED, Urine Hemoglobin NEG, Urine Glucose NEG 02/28/18 1202: Anion Gap 10, Estimated GFR 29 L, BUN/Creatinine Ratio 40.6 H, Glucose 83, Calcium 9.7, Total Bilirubin 0.6, AST 32, ALT 29, Alkaline Phosphatase 82, Creatine Kinase 248 H, Troponin I < 0.01, Total Protein 6.0 L, Albumin 3.9, Globulin 2.1, Albumin/Globulin Ratio 1.9, PT 10.6, INR 1.01, APTT 31, D-Dimer High Sensitivty 509 H, CBC w Diff NO MAN DIFF REQ, RBC 4.24, MCV 89.9, MCH 30.2 , MCHC 33.6, RDW 13.4, MPV 9.4, Gran % 63.7, Lymphocytes % 25.6, Monocytes % 5.3 , Eosinophils % 5.3 H, Basophils % 0.1, Absolute Granulocytes 5.1, Absolute Lymphocytes 2.1, Absolute Monocytes 0.4, Absolute Eosinophils 0.4, Absolute Basophils 0 11:51AM Unwitnessed fall +/- LOC - CT head, PT, PTT to assess for bleed - CT pelvis to assess for bladder injury or fracture - Telemetry, Troponin EKG to assess for cardiac arrythmias or NJ - CMP, CBC, U/A, Utox to assess renal function, electrolytes, UTI, or other causes for fall - CPK to assess for rhabdomyolysis 2/2 to overnight fall Left calf swelling - Venous doppler to rule out DVT ([facility] Departure Departure Time of Disposition: 1453 Disposition: STILL A PATIENT Condition: Stable Clinical Impression Primary Impression: ALEXA (acute kidney injury) Secondary Impressions: Syncope and collapse Referrals: Ray Rivera MD (PCP/Family) Departure Forms: Customer Survey General Discharge Information Admission Note Spoke With: Ray Rivera MD Documentation of Exam: Documentation of any treatments & extenuating circumstances including Concerns Regarding Discharge (functional status, medication knowledge or non-compliance, living conditions, etc.) that warrant an admission rather than observation: [IV FLUIDS, SERIAL EKG/TROPONIN, PHYSICAL THERAPY CONSULTATION] Resident Co-Sign Statement Statement: ED Attending supervision documentation- [X] I saw and evaluated the patient. I have also reviewed all the pertinent lab results and diagnostic results. I agree with the findings and the plan of care as documented in the Resident's documentation. [X] I have reviewed the ED Record and agree with the Resident's documentation. [] Additions or exceptions (if any) to the Resident's note and plan are summarized below: [] (Radha POZO,Jenise) ED Attending Observation Initial Observation Note: I have seen and personally examined HALIE BAJWA on 05/19/17 at 1204. I agree with the current emergency department documentation. The disposition (admission or discharge) is uncertain at this time, she needs a period of observation for the following reason(s): The ED Nurse caring for this patient has been personally informed as to what the patient is being observed for. ([facility] STUDENT,Brody)
[2017-05-19 12:10] LABS: ABSOLUTE BASOPHIL COUNT 0 /CUMM (0.0-0.2); ABSOLUTE EOSINOPHIL COUNT 0.4 /CUMM (0.0-0.7); ABSOLUTE GRANULOCYTE CT 5.1 /CUMM (1.4-6.5); ABSOLUTE LYMPH COUNT 2.1 /CUMM (1.2-3.4); ABSOLUTE MONOCYTE COUNT 0.4 /CUMM (0.10-0.60); BASOPHIL % 0.1 % (0.0-2.0); EOSINOPHIL % 5.3 % (0-5); GRANULOCYTE % 63.7 % (42.2-75.2); HEMATOCRIT 38.1 % (37-47); MEAN CORPUSCULAR HGB 30.2 PG (27.0-31.0); MEAN CORPUSCULAR HGB CONC 33.6 G/DL (33.0-37.0); MEAN CORPUSCULAR VOLUME 89.9 FL (81.0-99.0); MEAN PLATELET VOLUME 9.4 FL (7.4-10.4); PLATELET COUNT 125 /CUMM (130-400); RBC DISTRIBUTION WIDTH 13.4 % (11.5-14.5); RED BLOOD CELL CT 4.24 /CUMM (4.20-5.40)
[2017-05-19 13:15] LABS: PT 10.6 SEC (9.4-12.5); PTT 31 SEC (25-37)
--- NOTE | 2017-05-19 13:41 | CT SCAN REPORT ---
CT HEAD WITHOUT CONTRAST CT OF THE PELVIS WITHOUT CONTRAST CLINICAL INFORMATION: Trauma. Head injury. Sacral pain. 82-year-old female patient. COMPARISON: CT exams of the brain done July 2010, March 2015, and July 2016. TECHNIQUE: Contiguous axial imaging was performed from the skull base to vertex without intravenous administration of contrast. Contiguous axial scans of the pelvis and both hips. DLP: 842 mGy-cm for pelvis. 722 mGy-cm for brain FINDINGS: HEAD: Patient Service Technician Pst: There is extensive hyperostosis interna frontalis. Postop craniotomy changes are evident in the left frontal region. The small right sphenoid wing meningioma is stable. There is chronic encephalomalacia and gliosis involving the left frontal lobe. This is stable. Dural calcifications are present. The left frontal bone flap is stable in position. No hardware failure. Dural and tentorial calcifications are present. No evidence of acute intracranial hemorrhage. No abnormal mass effect or midline shift. Powers to white matter differentiation is preserved without evidence of acute territorial infarction. No extra-axial fluid collections are identified. No hydrocephalus. No acute abnormalities in the osseous structures and extracranial soft tissues. The mastoid air cells and visualized portions of the paranasal sinuses are well aerated. PELVIS: Patient Service Technician Pst: There is extensive degenerative disc disease of the lumbar spine and significant osteoarthritis of the right hip. No acute fracture or dislocation is detected. The deformed femoral head is partially subluxed from the abnormal right acetabulum. Juxta-articular lucencies are present both in the acetabulum and the proximal femur. Loose bodies are present in the right hip joint. A joint effusion is also seen. The sacrum is normal. The bladder is distended and normal. The postmenopausal uterus contains a number of small calcified fibroids. There is moderate stool impaction in the rectosigmoid colon. There is no sign of pelvic hematoma formation. IMPRESSION: 1. No acute intracranial pathology. 2. Stable right sphenoid wing meningioma. 3. Encephalomalacia left frontal lobe, stable. 4. Severe osteoarthritis of the right hip with partial subluxation and numerous juxta-articular lucencies. Loose bodies are present in the right hip joint. No acute fracture. There is a right hip joint effusion.
--- NOTE | 2017-05-19 13:41 | ULTRASOUND REPORT ---
EXAMINATION: US TRIPLEX LOWER EXTREMITY, LEFT CLINICAL INFORMATION: Swelling COMPARISON: None TECHNIQUE: Color-flow triplex imaging with spectral analysis and compression Doppler were performed on the lower extremity. FINDINGS: Respiratory variation, normal compression and augmented flow are noted throughout the lower extremity. The visualized common femoral vein, superficial femoral vein, profunda femoral vein, popliteal vein show no evidence of deep venous thrombosis. The calf veins are not reliably evaluated. Study limited due to patient body habitus. There is no Bishop's cyst. IMPRESSION: No evidence of deep venous thrombosis involving the lower extremity extending from the common femoral vein to the popliteal vein. Calf veins could not be evaluated..
--- NOTE | 2017-05-19 16:11 | History & Physical ---
Ailyn POZO,Wilma 05/19/17 1611: General Information and HPI MD Statement: I have seen and personally examined HALIE BAJWA and documented this H&P. The patient is a 82 year old F who presented with a patient stated chief complaint of [Syncope]. Source of Information: patient, old records Exam Limitations: no limitations History of Present Illness: 82 years old female with past medical history of hypertension, hyperlipidemia, coronary artery disease, [place], vertigo GERD presented to the ER by EMS after having unwitnessed fall yesterday, the patient reports that she was in her usual state of health yesterday, she had been up in the afternoon, she woke up around 2 PM, she was in her kitchen cleaning when her walker tripped over her stool and she fell down, the patient was on the floor trying to get up however she kept falling asleep multiple times and was not able to get up all night, she was on the floor since 8 PM to 9 AM also she had her cell phone and buzz near to her but she wasn't able to use it. The patient reports that she fell backwards however she denies any injury to her head. Patient endorses feeling tired and sleepy, she also endorses pain on her lower back radiating down her left leg. The patient lives home alone ([facility])and uses a walker to ambulate due to back pain The patient denies any palpitation, weakness, numbness, urinary or fecal incontinence or seizure before or after the episode She also denies any fever, chills, nausea, vomiting, diarrhea or constipation She is independent in her daily activities however she stopped driving 2 years ago due to dizziness She also reports increasing left shoulder pain and left leg swelling. 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: Will Suarez MD Her pharmacy is [facility] in [place] ED Course: Vital signs: Blood pressure 148/84, pulse 62, respiratory rate 18, temperature 98.6, pulse ox is 98 on room air Labs on admission: WBC 8, hemoglobin 12.8, platelet count 25, sodium 145, potassium 3.9, BUN 69, creatinine 1.7, CPK 48, urine analysis and toxicology are negative Allergies/Medications Home Med list Allopurinol 100 MG TABLET 1 TAB PO DAILY GOUT (Reported) Aspirin (Aspirin*) 81 MG TAB.CHEW 1 TAB PO DAILY HEART HEALTH (Reported) Atorvastatin Calcium 10 MG TABLET 1 TAB PO DAILY CHOLESTEROL (Reported) Calcium Carbonate/Vitamin D3 (Os-Akil 500+D3 Caplet) 500 MG-600 TABLET 1 TAB PO BID SUPPLEMENT (Reported) Celecoxib (Celebrex) 200 MG CAPSULE 1 CAP PO BID PAIN (Reported) Duloxetine Hydrochloride (Cymbalta) 30 MG CAPSULE.DR 1 CAP PO DAILY DEPRESSION (Reported) Fentanyl (Duragesic) 25 MCG/HOUR PATCH.TD72 1 PAT TOP Q48 PAIN (Reported) Furosemide 20 MG TABLET 1 TAB PO DAILY WATER PILL (Reported) Hydrocodone/Acetaminophen (Hydrocodon-Acetaminoph 7.5-300) 7.5 MG-300 MG TABLET 1 TAB PO DAILY PAIN (Reported) Lansoprazole 30 MG CAPSULE.DR 1 CAP PO DAILY GI (Reported) Lorazepam (Ativan) 0.5 MG TABLET 1 TAB PO DAILY ANXIETY (Reported) Meclizine HCl 25 MG TABLET 1 TAB PO TIDPRN PRN DIZZINESS (Reported) Metoprolol Succ XL (Toprol XL) 25 MG TAB 1 TAB PO DAILY HEART (Reported) Multivitamin (Daily Multiple Vitamin) 1 EACH TABLET 1 TAB PO DAILY VITAMIN SUPPORT (Reported) Water View-3 Acid Ethyl Esters (Lovaza) 1 GRAM CAPSULE 2 CAP PO BID SUPPLEMENT ( Reported) Potassium Chloride (K-Tab ER) 20 MEQ TABLET.ER 1 TAB PO DAILY SUPPLEMENT ( Reported) Pregabalin (Lyrica) 75 MG CAPSULE 1 CAP PO BID PAIN (Reported) Telmisartan/Hydrochlorothiazid (Micardis Hct 80-25 MG Tablet) 80 MG-25 MG TABLET 1 TAB PO BID BP (Reported) Past History Travel History Traveled to [place] past 21 day No Medical History Neurological: vertigo, MENINGOMA EENT: NONE Cardiovascular: CAD, hypertension, hyperlipidemia Respiratory: NONE Gastrointestinal: GERD Hepatic: NONE Renal: NONE Musculoskeletal: chronic back pain, osteoarthritis, spinal stenosis Psychiatric: anxiety, depression Endocrine: NONE Blood Disorders: NONE Cancer(s): NONE 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 Ambulation: walker IADLs Independent: shopping, housework, finances, food prep, telephone, transportation , medication admin. Review of Systems Review of Systems Constitutional: Denies: malaise, weakness. Cardiovascular: Denies: chest pain, edema, orthopena, palpitations. Respiratory: Reports: short of breath. Denies: cough, hemoptysis, orthopnea, sputum production, stridor. GI: Denies: no symptoms. Genitourinary: Denies: no symptoms. Musculoskeletal: Reports: back pain, joint pain. Skin: Denies: no symptoms. Neurological/Psychological: Reports: depressed. Denies: confusion, emotional problems, numbness, paresthesia. Hematologic/Endocrine: Denies: no symptoms. Immunologic/Allergic: Denies: no symptoms. Exam & Diagnostic Data Last 24 Hrs of Vital Signs/I&O Vital Signs Date Time Temp Pulse Resp B/P B/P Pulse O2 O2 Flow FiO2 Mean Ox Delivery Rate 05/19 1800 98.1 60 18 150/82 98 Room Air 05/19 1616 98.6 62 18 148/84 98 Room Air 05/19 1318 98.2 77 18 146/88 98 Room Air 05/19 1029 98.2 76 18 153/84 98 Room Air Intake & Output 05/19 1600 05/19 0800 05/19 0000 Intake Total 0 Output Total 1100 Balance -1100 Intake, Oral 0 Output, Urine 1100 Physical Exam General Appearance Alert, Oriented X3, Cooperative, No Acute Distress Skin small skin tear on the coccyx HEENT Atraumatic, PERRLA, EOMI, Mucous Membr. moist/pink Neck Supple, No JVD Cardiovascular Normal S1, Normal S2, No Murmurs Lungs Clear to Auscultation Abdomen Normal Bowel Sounds, Soft, No Tenderness Neurological Normal Speech, Strength at 5/5 X4 Ext, Normal Tone, Sensation Intact, Cranial Nerves 3-12 NL Extremities No Clubbing, No Cyanosis, LLE more swollen than RLE Vascular Normal Pulses Last 24 Hrs of Labs/Micheal: Laboratory Tests 05/19/17 1315: Urine Opiates Screen 543, Methadone Screen < 40, Barbiturate Screen < 60, Ur Phencyclidine Scrn < 6.00, Amphetamines Screen < 100, U Benzodiazepines Scrn < 85, Urine Cocaine Screen < 50, Urine Cannabis Screen < 5.00, Urine Color YEL, Urine Clarity CLEAR, Urine pH 7.0, Ur Specific Benedict 1.010, Urine Protein NEG, Urine Ketones NEG, Urine Nitrite NEG, Urine Bilirubin NEG, Urine Urobilinogen 0.2, Ur Leukocyte Esterase NEG, Ur Microscopic EXAM NOT REQUIRED, Urine Hemoglobin NEG, Urine Glucose NEG 05/19/17 1202: Anion Gap 10, Estimated GFR 29 L, BUN/Creatinine Ratio 40.6 H, Glucose 83, Calcium 9.7, Total Bilirubin 0.6, AST 32, ALT 29, Alkaline Phosphatase 82, Creatine Kinase 248 H, Troponin I < 0.01, Total Protein 6.0 L, Albumin 3.9, Globulin 2.1, Albumin/Globulin Ratio 1.9, PT 10.6, INR 1.01, APTT 31, D-Dimer High Sensitivty Pending, CBC w Diff NO MAN DIFF REQ, RBC 4.24, MCV 89.9, MCH 30.2, MCHC 33.6, RDW 13.4, MPV 9.4, Gran % 63.7, Lymphocytes % 25.6, Monocytes % 5.3, Eosinophils % 5.3 H, Basophils % 0.1, Absolute Granulocytes 5.1, Absolute Lymphocytes 2.1, Absolute Monocytes 0.4, Absolute Eosinophils 0.4, Absolute Basophils 0 Diagnostic Data EKG Results Normal sinus rhythm, heart rate 70, QTC 462, QRS [address]: 1. No acute intracranial pathology. 2. Stable right sphenoid wing meningioma. 3. Encephalomalacia left frontal lobe, stable. 4. Severe osteoarthritis of the right hip with partial subluxation and numerous juxta-articular lucencies. Loose bodies are present in the right hip joint. No acute fracture. There is a right hip joint effusion. Head T: Assessment/Plan Assessment: 82 years old female with past medical history of hypertension, hyperlipidemia, coronary artery disease, [place], vertigo GERD presented to the ER by EMS after having unwitnessed fall yesterday, the patient reports that she was in her usual state of health yesterday, she had been up in the afternoon, she woke up around 2 PM, she was in her kitchen cleaning when her walker tripped over her stool and she fell down, the patient was on the floor trying to get up however she kept falling asleep multiple times and was not able to get up all night, she was on the floor since 8 PM to 9 AM. Most likely her fall was mechanical however there is a possibility for side effect of her pain meds including Percocet and fentanyl patch, cardiological causes of syncope has to be ruled out given his past cardiac history, CT head which ruled out acute intracranial pathology and Doppler lower extremity were negative which ruled out DVT #Fall #Elevated CPK #ALEXA on CKD #History of hypertension, hyperlipidemia, CAD, vertigo #Depression # skin tear on the coccyx present on admission Plan: Admit to telemetry Vitals every shift Close monitoring of I's and O's Cardiology consult appreciated PT evaluation Serial troponins and EKG to rule out ACS Cardiology consult appreciated Monitoring of CPK Gentle IV fluid hydration Continue home meds Psych consult appreciated Social work consult appreciated wound care consult appreciated Full code DVT prophylaxis with subcutaneous heparin Heart healthy diet As Ranked By This Provider Problem List: 1. Syncope and collapse 2. Vertigo Core Measures/Misc (12/06) Acute Coronary Syndrome ACS Diagnosis: No Congestive Heart Failure Congestive Heart Failure Diagnosis No Cerebrovascular Accident CVA/TIA Diagnosis: No VTE (View Protocol) VTE Risk Factors Age>40 No Mechanical VTE Prophylaxis d/t N/A MechProphylax Ordered No VTE Pharm Prophylaxis d/t NA PharmProphylax ordered Sepsis (View protocol) Sepsis Present: No Lorie Zuniga MD 05/19/17 1851: General Information and HPI Allergies/Medications Allergies: Coded Allergies: latex (HIVES 05/19/17) Resident Review Statement Resident Statement: examined this patient, discussed with internal corrosion specialist, agreed with internal corrosion specialist, discussed with family Other Findings: Patient is an 82-year-old female,BIBA from a elderly living facility/ [facility] because of the unwitnessed fall. According to the patient, she was completely fine. She has had a sleep in the daytime. she took her night medication including meclizine and fentanyl. Around 8:30 PM after cleaning her kitchen,she caught her walker on a heater, around 11 PM yesterday leading to fall backward, landed on her hand and back. She did not call EMS because she was very drowsy and was not able to take any decision due to altered mental status due to the influence of pain medicine. She woke up early in the morning around 9:00 and call her neighbor. They called 911 and sent her to [facility]. She does have her [employer] and cell phone and she is aware of that. In the morning she was completely oriented to time place and person. She was still complaining of pain in her back and left leg. She denies her head strike, loss of consciousness, incontinence of the stool in the urine Tongue bite, weakness in any part of the body. Of note she also complaining of burning sensation in her legs. Past medical history -hypertension, hyperlipidemia, coronary artery disease, [place], GERD, spinal stenosis, chronic back pain, osteoarthritis, depression, vertigo, history of tachycardia induced cardiomyopathy, non-ST elevation [place] 2014, history of meningioma, history of sleep apnea, 2D echo(2014) -stage I diastolic dysfunction, LV ejection fraction 50% Allergies-latex Family history - sister - lung cancer, Mother had cancer/stomach, father in fire surgical history - hx of meningioma surgery 10 yrs ago, appendicectomy, left knee replacement complicated by infection, ED course - Vital signs temperature 98.2, pulse 76, respiratory 18, blood pressure 153/84, SPO2 98% on room air. Blood workup showed hemoglobin 12.8, hematocrit 38.1, platelet count 125, granulocytes 63.7, eosinophil 5.3, serum sodium 145, potassium 2.9, carbon DEXA 35, anion gap 10, BUN 69, creatinine 1.7(baseline creatinine 1.1), PT/INR 10.6/1.01, calcium 9.7, total bilirubin 0.6, AST 32, ALT 29, alkaline phosphatase 82, creatinine kinase 248, troponin less than 0.01, u tox negative, urinalysis negative. CT head -no acute intraocular pathology, stable right sphenoid wing meningioma, encephalomalacia of left frontal lobe. CT of the right hip -stable osteoarthritis with partial subluxation and numerous just articular lucencies, some loose bodies in the right hip joint. No acute fracture. There is right hip joint effusion Venous Doppler study -no any evidence of DVT She was given 1 L of normal saline, she had a urine output of 1100 cc. Assessment and plan - Unwitnessed fall probably secondary to syncope -High creatinine kinase * We will observe the patient to telemetry floor * We will watch for any arrhythmias * We will start patient on IV fluids * We will check orthostatic vital sign * Strict intake output charting * will repeat serum creatinine, and CPK early in the morning * PT evaluation tomorrow ALEXA - * Possibly secondary to dehydration, will give IV normal saline and follow-up with BEP Left lower leg swelling and tenderness - * Color Doppler of left leg does not show any evidence of DVT, Low platelet count * We will repeat the platelet count tomorrow. High eosinophil count -possible drug-induced * We will observe Chronic back pain - * Continue pain medication according to the pain scale CODE STATUS -full code DVT prophylaxis-ALPS Diet -heart healthy diet
--- NOTE | 2017-05-19 16:36 | Admission Certification ---
Admission Certification Certification Statement - As attending physician, I certify that at the time of - admission, based on clinical presentation, severity of - symptoms, need for further diagnostic testing and - therapeutic interventions, and risk of adverse outcomes - without in-hospital treatment, in my clinical assessment, - this patient requires an acute hospital stay for a minimum - of two nights or longer. I have also considered psychsocial - factors such as support system, advanced age, financial - issues, cognitive issues, and failed out-patient treatments, - past re-admission history, safety of patient, and lack of - compliance as applicable. Specific rationale supporting this admission is: Mechanical fall, mild rhabdo, acute kidney insufficiency
--- NOTE | 2017-05-19 16:40 | PN- Att Addend ---
Attending Addendum Attending Brief Note 82-year-old white female living alone. Last evening had an unwitnessed fall and it stayed on the floor all night in the morning called for help and was brought into the hospital patient is alert and oriented 3 now complaining of some lower back pain patient has chronic pains goes to pain management nasal medications patient cannot recall why she fell in the emergency room the workup was done the CAT scan of the head showed no acute intracranial pathology shows her chronic meningioma with no changes. Her BUN was 69, in December was 35 and her creatinine was 1.7 in December was 1.2. Her CK was 248, troponin less than 0.01 her H&H is stable, her white count is normal 8000 urinalysis is negative ultrasound of the left leg was done because of a little swelling didn't show any DVT patient will be admitted and monitored on telemetry have cardiology evaluation will Will Suarez MD, had gentle hydration monitor trending of her kidney function and CPKs. PT evaluation in the morning, patient might need short-term rehabilitation and or assisted living Current Medications Sig/Han Start time Last Medication Dose Route Stop Time Status Admin Celecoxib 200 MG ONCE ONE 05/19 1500 DC 05/19 PO 05/19 1501 1538 Sodium Chloride 1,000 ML ONCE ONE 05/19 1300 AC 05/19 IV 05/19 2059 1317 Laboratory Tests 05/19/17 1315: Urine Opiates Screen 543, Methadone Screen < 40, Barbiturate Screen < 60, Ur Phencyclidine Scrn < 6.00, Amphetamines Screen < 100, U Benzodiazepines Scrn < 85, Urine Cocaine Screen < 50, Urine Cannabis Screen < 5.00, Urine Color YEL, Urine Clarity CLEAR, Urine pH 7.0, Ur Specific Waldron 1.010, Urine Protein NEG, Urine Ketones NEG, Urine Nitrite NEG, Urine Bilirubin NEG, Urine Urobilinogen 0.2, Ur Leukocyte Esterase NEG, Ur Microscopic EXAM NOT REQUIRED, Urine Hemoglobin NEG, Urine Glucose NEG 05/19/17 1202: Anion Gap 10, Estimated GFR 29 L, BUN/Creatinine Ratio 40.6 H, Glucose 83, Calcium 9.7, Total Bilirubin 0.6, AST 32, ALT 29, Alkaline Phosphatase 82, Creatine Kinase 248 H, Troponin I < 0.01, Total Protein 6.0 L, Albumin 3.9, Globulin 2.1, Albumin/Globulin Ratio 1.9, PT 10.6, INR 1.01, APTT 31, CBC w Diff NO MAN DIFF REQ, RBC 4.24, MCV 89.9, MCH 30.2, MCHC 33.6, RDW 13.4, MPV 9.4, Gran % 63.7, Lymphocytes % 25.6, Monocytes % 5.3, Eosinophils % 5.3 H, Basophils % 0.1, Absolute Granulocytes 5.1, Absolute Lymphocytes 2.1, Absolute Monocytes 0.4, Absolute Eosinophils 0.4, Absolute Basophils 0 Vital Signs Date Time Temp Pulse Resp B/P B/P Pulse O2 O2 Flow FiO2 Mean Ox Delivery Rate 05/19 1616 98.6 62 18 148/84 98 Room Air 05/19 1318 98.2 77 18 146/88 98 Room Air 05/19 1029 98.2 76 18 153/84 98 Room Air
[2017-05-19 18:00] VITALS: BP 150/82
[2017-05-19 22:19] VITALS: BP 114/76
--- NOTE | 2017-05-20 07:09 | PN- Housestaff ---
Subjective Follow-up For: #Fall #Elevated CPK #ALEXA on CKD #History of hypertension, hyperlipidemia, CAD, vertigo #Depression # skin tear on the coccyx present on admission Subjective: Patient is seen and examined at bedside, she complains of severe constipation and stomach ache, she was given Dulcolax suppository and had a bowel movement, she will be going for VQ scan as per cardiology recommendation, denies any other complaint Review of Systems Constitutional: Reports: see HPI. Objective Last 24 Hrs of Vital Signs/I&O Vital Signs Date Time Temp Pulse Resp B/P B/P Pulse O2 O2 Flow FiO2 Mean Ox Delivery Rate 05/20 0711 97.5 60 18 128/74 95 Room Air 05/19 2219 98.1 60 19 114/76 92 05/19 2048 58 112/54 05/19 1800 98.1 60 18 150/82 98 Room Air 05/19 1616 98.6 62 18 148/84 98 Room Air Intake & Output 05/20 1600 05/20 0800 05/20 0000 Intake Total 1037.5 400 Output Total Balance 1037.5 400 Intake, IV 937.5 250 Intake, Oral 100 150 Number 1 Bowel Movements Patient 224 lb Weight Weight Bed scale Measurement Method Physical Exam General Appearance: Alert, Oriented X3, Cooperative, No Acute Distress Neck: Supple, No JVD Cardiovascular: Normal S1, Normal S2, No Murmurs Lungs: Clear to Auscultation Abdomen: Normal Bowel Sounds, Soft Neurological: Normal Speech, Strength at 5/5 X4 Ext, Normal Tone, Sensation Intact Extremities: No Clubbing, No Cyanosis Assessment/Plan Assessment: 82 years old female with past medical history of hypertension, hyperlipidemia, coronary artery disease, [place], vertigo GERD presented to the ER by EMS after having unwitnessed fall yesterday, the patient reports that she was in her usual state of health yesterday, she had been up in the afternoon, she woke up around 2 PM, she was in her kitchen cleaning when her walker tripped over her stool and she fell down, the patient was on the floor trying to get up however she kept falling asleep multiple times and was not able to get up all night, she was on the floor since 8 PM to 9 AM. Most likely her fall was mechanical however there is a possibility for side effect of her pain meds including Percocet and fentanyl patch, cardiological causes of syncope has to be ruled out given his past cardiac history, CT head which ruled out acute intracranial pathology and Doppler lower extremity were negative which ruled out DVT #Fall #Elevated CPK #ALEXA on CKD #History of hypertension, hyperlipidemia, CAD, vertigo #Depression # skin tear on the coccyx present on admission Plan: Monitor on telemetry Vitals every shift Close monitoring of I's and O's Follow up on cardiology recommendation PT evaluation Follow up on VQ scan to rule out PE CPK trended down Encourage oral intake Continue home meds Psych consult appreciated Social work consult appreciated wound care consult appreciated Full code DVT prophylaxis with subcutaneous heparin Heart healthy diet Problem List: 1. Syncope and collapse Pain Ratin Pain Location: leg Pain Goal: Remain pain free Pain Plan: pathway Tomorrow's Labs & Rationales: cbc bep
[2017-05-20 07:11] VITALS: BP 128/74
[2017-05-20 08:07] LABS: ABSOLUTE BASOPHIL COUNT 0 /CUMM (0.0-0.2); ABSOLUTE EOSINOPHIL COUNT 0.4 /CUMM (0.0-0.7); ABSOLUTE GRANULOCYTE CT 3.5 /CUMM (1.4-6.5); ABSOLUTE LYMPH COUNT 1.7 /CUMM (1.2-3.4); ABSOLUTE MONOCYTE COUNT 0.3 /CUMM (0.10-0.60); BASOPHIL % 0.5 % (0.0-2.0); EOSINOPHIL % 6.8 % (0-5); GRANULOCYTE % 58.8 % (42.2-75.2); MEAN CORPUSCULAR HGB 30.6 PG (27.0-31.0); MEAN CORPUSCULAR HGB CONC 33.9 G/DL (33.0-37.0); MEAN CORPUSCULAR VOLUME 90.4 FL (81.0-99.0); MEAN PLATELET VOLUME 9.9 FL (7.4-10.4); PLATELET COUNT 110 /CUMM (130-400); RBC DISTRIBUTION WIDTH 13.7 % (11.5-14.5); RED BLOOD CELL CT 3.88 /CUMM (4.20-5.40)
--- NOTE | 2017-05-20 09:23 | Cons- Cardiology ---
General Information and HPI Consulting Request Date of Consult: 05/20/17 Requested By: Ray Rivera MD Reason for Consult: possible syncope Source of Information: patient, old records Exam Limitations: patient's age History of Present Illness: 82 years old female with past medical history of hypertension, hyperlipidemia, coronary artery disease, [place], vertigo GERD presented to the ER by EMS after having unwitnessed fall yesterday, the patient reports that she was in her usual state of health yesterday, she had been up in the afternoon, she woke up around 2 PM, she was in her kitchen cleaning when her walker tripped over her stool and she fell down, the patient was on the floor trying to get up however she kept falling asleep multiple times and was not able to get up all night, she was on the floor since 8 PM to 9 AM also she had her cell phone and buzz near to her but she wasn't able to use it. The patient reports that she fell backwards however she denies any injury to her head. Patient endorses feeling tired and sleepy, she also endorses pain on her lower back radiating down her left leg. The patient lives home alone ([facility])and uses a walker to ambulate due to back pain The patient denies any palpitation, weakness, numbness, urinary or fecal incontinence or seizure before or after the episode She also denies any fever, chills, nausea, vomiting, diarrhea or constipation She is independent in her daily activities however she stopped driving 2 years ago due to dizziness She also reports increasing left shoulder pain and left leg swelling. Patient also has history of obstructive sleep apnea for which she had surgery and was supposed to use oxygen 2 L at night but she doesn't like using it. The above was obtained by the admitting resident. The circumstances surrounding her fall complex. She is on oxycodone forelock spinal stenosis. She had asleep in the afternoon woke up at 8 PM thought she might want to go to bed to go oxycodone had come down to the kitchen to do some kitchen work and thereafter seemed to find is a well couldn't get up. She clearly remembers falling to the floor. No preceding chest pain or unusual shortness of breath. She apparently had a cardiac catheterization in 2015 which showed no occlusive disease. She history of hypertension significant arthritis left knee replacement severe spinal stenosis on narcotic medications history of melanoma on the scalp resection. Activity level is very poor and limited to the chair walker and a small apartment. Allergies/Medications Allergies: Coded Allergies: latex (HIVES 05/19/17) Home Med List: Allopurinol 100 MG TABLET 1 TAB PO DAILY GOUT (Reported) Aspirin (Aspirin*) 81 MG TAB.CHEW 1 TAB PO DAILY HEART HEALTH (Reported) Atorvastatin Calcium 10 MG TABLET 1 TAB PO DAILY CHOLESTEROL (Reported) Calcium Carbonate/Vitamin D3 (Os-Akil 500+D3 Caplet) 500 MG-600 TABLET 1 TAB PO BID SUPPLEMENT (Reported) Celecoxib (Celebrex) 200 MG CAPSULE 1 CAP PO BID PAIN (Reported) Duloxetine Hydrochloride (Cymbalta) 30 MG CAPSULE.DR 1 CAP PO DAILY DEPRESSION (Reported) Fentanyl (Duragesic) 25 MCG/HOUR PATCH.TD72 1 PAT TOP Q48 PAIN (Reported) Furosemide 20 MG TABLET 1 TAB PO DAILY WATER PILL (Reported) Hydrocodone/Acetaminophen (Hydrocodon-Acetaminoph 7.5-300) 7.5 MG-300 MG TABLET 1 TAB PO DAILY PAIN (Reported) Lansoprazole 30 MG CAPSULE.DR 1 CAP PO DAILY GI (Reported) Lorazepam (Ativan) 0.5 MG TABLET 1 TAB PO DAILY ANXIETY (Reported) Meclizine HCl 25 MG TABLET 1 TAB PO TIDPRN PRN DIZZINESS (Reported) Metoprolol Succ XL (Toprol XL) 25 MG TAB 1 TAB PO DAILY HEART (Reported) Multivitamin (Daily Multiple Vitamin) 1 EACH TABLET 1 TAB PO DAILY VITAMIN SUPPORT (Reported) [place]-3 Acid Ethyl Esters (Lovaza) 1 GRAM CAPSULE 2 CAP PO BID SUPPLEMENT ( Reported) Potassium Chloride (K-Tab ER) 20 MEQ TABLET.ER 1 TAB PO DAILY SUPPLEMENT ( Reported) Pregabalin (Lyrica) 75 MG CAPSULE 1 CAP PO BID PAIN (Reported) Telmisartan/Hydrochlorothiazid (Micardis Hct 80-25 MG Tablet) 80 MG-25 MG TABLET 1 TAB PO BID BP (Reported) Current Medications: Current Medications Sig/Han Start time Last Medication Dose Route Stop Time Status Admin Allopurinol 100 MG DAILY 05/19 1831 AC 05/19 PO 2046 Aspirin 81 MG DAILY 05/20 1000 AC 05/20 PO 0819 Atorvastatin Calcium 10 MG DAILY 05/19 1831 AC 05/19 PO 204 Bisacodyl 10 MG ONCE ONE 05/20 0815 DC 05/20 MD 05/20 0816 0817 Calcium Carbonate 500 MG BID 05/19 2200 AC 05/20 PO 0818 Celecoxib 200 MG BID 05/19 2200 AC 05/20 PO 0819 Celecoxib 200 MG ONCE ONE 05/19 1500 DC 05/19 PO 05/19 1501 1538 Duloxetine HCl 30 MG DAILY 05/19 1833 AC 05/19 PO 2048 Fentanyl Citrate 25 MCG Q48 05/21 1000 AC TOP Furosemide 20 MG DAILY 05/20 1000 AC 05/20 PO 0818 Lorazepam 0.5 MG DAILY 05/19 1835 AC 05/19 PO 05/26 1834 2047 Meclizine HCl 25 MG TIDPRN PRN 05/19 1845 AC 05/20 PO 0843 Metoprolol Succinate 25 MG DAILY 05/19 1835 AC 05/19 PO 2048 Omeprazole 20 MG DAILY AC 05/20 0700 AC 05/20 PO 0521 Oxycodone/ 1 TAB Q4P PRN 05/19 1845 AC 05/20 Acetaminophen PO 0818 Polyethylene Glycol 17 GM DAILY NEEDED PRN 05/20 0815 AC PO Pregabalin 75 MG BID 05/19 2200 AC 05/20 PO 0819 Senna/Docusate Sodium 2 TAB DAILY NEEDED PRN 05/20 0815 AC PO Sodium Chloride 1,000 ML ONCE ONE 05/20 0230 AC 05/20 IV 05/20 1029 0238 Sodium Chloride 1,000 ML ONCE ONE 05/19 1300 DC 05/19 IV 05/19 2059 1317 Review of Systems Review of Systems Constitutional: Reports: see HPI. EENTM: Denies: no symptoms. Cardiovascular: Reports: see HPI. Respiratory: Denies: no symptoms. GI: Denies: no symptoms. Genitourinary: Denies: no symptoms. Musculoskeletal: Reports: see HPI. Skin: Denies: no symptoms. Neurological/Psychological: Denies: no symptoms. Hematologic/Endocrine: Denies: no symptoms. 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 Home Services at Home: None Smoking Status: Never Smoked Functional Ability ADLs Independent: dressing, eating, toileting, bathing. Ambulation: walker IADLs Independent: shopping, housework, finances, food prep, telephone, transportation , medication admin. Exam & Diagnostic Data Vital Signs and I&O Vital Signs Date Time Temp Pulse Resp B/P B/P Pulse O2 O2 Flow FiO2 Mean Ox Delivery Rate 05/20 0711 97.5 60 18 128/74 95 Room Air 05/19 2219 98.1 60 19 114/76 92 05/19 2048 58 112/54 05/19 1800 98.1 60 18 150/82 98 Room Air 05/19 1616 98.6 62 18 148/84 98 Room Air 05/19 1318 98.2 77 18 146/88 98 Room Air 05/19 1029 98.2 76 18 153/84 98 Room Air Intake & Output 05/20 1600 05/20 0800 05/20 0000 05/19 1600 05/19 0800 05/19 0000 Intake Total 1037.5 400 0 Output Total 1100 Balance 1037.5 400 -1100 Intake, IV 937.5 250 Intake, Oral 100 150 0 Number 1 Bowel Movements Output, Urine 1100 Patient 224 lb Weight Weight Bed scale Measurement Method Physical Exam: On general exam patient was somewhat uncomfortable because of back pain. Head normocephalic atraumatic Eyes sclera anicteric conjunctiva showed mild pallor extraocular muscles were normal Neck no jugular venous distention no thyroid masses no palpable nodes Chest lungs were clear bilaterally Heart regular rhythm with a 1/6 systolic murmur Abdomen soft protuberant bowel sounds normal And extremities left leg chronically swollen. Right leg no definite pitting edema no clubbing or cyanosis Neurological no gross motor or sensory deficits Labs/Micheal Results: Laboratory Tests 05/20 05/19 0647 1315 Chemistry Sodium (137 - 145 mmol/L) 144 Potassium (3.5 - 5.1 mmol/L) 4.1 Chloride (98 - 107 mmol/L) 105 Carbon Dioxide (22 - 30 mmol/L) 30 Anion Gap (5 - 16) 10 BUN (7 - 17 mg/dL) 56 H Creatinine (0.5 - 1.0 mg/dL) 1.5 H Estimated GFR (>60 ml/min) 33 L BUN/Creatinine Ratio (7 - 25 %) 37.3 H Creatine Kinase (30 - 135 U/L) 128 Hematology CBC w Diff NO MAN DIFF REQ WBC (4.8 - 10.8 /CUMM) 6.0 RBC (4.20 - 5.40 /CUMM) 3.88 L Hgb (12.0 - 16.0 G/DL) 11.9 L Hct (37 - 47 %) 35.0 L MCV (81.0 - 99.0 FL) 90.4 MCH (27.0 - 31.0 PG) 30.6 MCHC (33.0 - 37.0 G/DL) 33.9 RDW (11.5 - 14.5 %) 13.7 Plt Count (130 - 400 /CUMM) 110 L MPV (7.4 - 10.4 FL) 9.9 Gran % (42.2 - 75.2 %) 58.8 Lymphocytes % (20.5 - 51.1 %) 29.2 Monocytes % (1.7 - 9.3 %) 4.7 Eosinophils % (0 - 5 %) 6.8 H Basophils % (0.0 - 2.0 %) 0.5 Absolute Granulocytes (1.4 - 6.5 /CUMM) 3.5 Absolute Lymphocytes (1.2 - 3.4 /CUMM) 1.7 Absolute Monocytes (0.10 - 0.60 /CUMM) 0.3 Absolute Eosinophils (0.0 - 0.7 /CUMM) 0.4 Absolute Basophils (0.0 - 0.2 /CUMM) 0 Toxicology Urine Opiates Screen (>2000 NG/ML) 543 Methadone Screen (>300 NG/ML) < 40 Barbiturate Screen (>200 NG/ML) < 60 Ur Phencyclidine Scrn (>25 NG/ML) < 6.00 Amphetamines Screen (>1000 NG/ML) < 100 U Benzodiazepines Scrn (>200 NG/ML) < 85 Urine Cocaine Screen (>300 NG/ML) < 50 Urine Cannabis Screen (>50 NG/ML) < 5.00 Urines Urine Color (YEL,AMB,STR) YEL Urine Clarity (CLEAR) CLEAR Urine pH (5.0 - 8.0) 7.0 Ur Specific [place] (1.001 - 1.035) 1.010 Urine Protein (NEG,<30 MG/DL) NEG Urine Ketones (NEG) NEG Urine Nitrite (NEG) NEG Urine Bilirubin (NEG) NEG Urine Urobilinogen (0.1 - 1.0 EU/dl) 0.2 Ur Leukocyte Esterase (NEG) NEG Ur Microscopic EXAM NOT REQUIRED Urine Hemoglobin (NEG) NEG Urine Glucose (N MG/DL) NEG 05/19 1202 Chemistry Sodium (137 - 145 mmol/L) 145 Potassium (3.5 - 5.1 mmol/L) 3.9 Chloride (98 - 107 mmol/L) 100 Carbon Dioxide (22 - 30 mmol/L) 35 H Anion Gap (5 - 16) 10 BUN (7 - 17 mg/dL) 69 H Creatinine (0.5 - 1.0 mg/dL) 1.7 H Estimated GFR (>60 ml/min) 29 L BUN/Creatinine Ratio (7 - 25 %) 40.6 H Glucose (65 - 99 mg/dL) 83 Calcium (8.4 - 10.2 mg/dL) 9.7 Total Bilirubin (0.2 - 1.3 mg/dL) 0.6 AST (14 - 36 U/L) 32 ALT (9 - 52 U/L) 29 Alkaline Phosphatase (<127 U/L) 82 Creatine Kinase (30 - 135 U/L) 248 H Troponin I (< 0.11 ng/ml) < 0.01 Total Protein (6.3 - 8.2 g/dL) 6.0 L Albumin (3.5 - 5.0 g/dL) 3.9 Globulin (1.9 - 4.2 gm/dL) 2.1 Albumin/Globulin Ratio (1.1 - 2.2 %) 1.9 Coagulation PT (9.4 - 12.5 SEC) 10.6 INR (0.90 - 1.19) 1.01 APTT (25 - 37 SEC) 31 D-Dimer High Sensitivty (0 - 243 ng/ml) 509 H Hematology CBC w Diff NO MAN DIFF REQ WBC (4.8 - 10.8 /CUMM) 8.0 RBC (4.20 - 5.40 /CUMM) 4.24 Hgb (12.0 - 16.0 G/DL) 12.8 Hct (37 - 47 %) 38.1 MCV (81.0 - 99.0 FL) 89.9 MCH (27.0 - 31.0 PG) 30.2 MCHC (33.0 - 37.0 G/DL) 33.6 RDW (11.5 - 14.5 %) 13.4 Plt Count (130 - 400 /CUMM) 125 L MPV (7.4 - 10.4 FL) 9.4 Gran % (42.2 - 75.2 %) 63.7 Lymphocytes % (20.5 - 51.1 %) 25.6 Monocytes % (1.7 - 9.3 %) 5.3 Eosinophils % (0 - 5 %) 5.3 H Basophils % (0.0 - 2.0 %) 0.1 Absolute Granulocytes (1.4 - 6.5 /CUMM) 5.1 Absolute Lymphocytes (1.2 - 3.4 /CUMM) 2.1 Absolute Monocytes (0.10 - 0.60 /CUMM) 0.4 Absolute Eosinophils (0.0 - 0.7 /CUMM) 0.4 Absolute Basophils (0.0 - 0.2 /CUMM) 0 Diagnostic Data EKG Results Sinus rhythm with left axis deviation poor r progression no serial change Other Results Venous ultrasoundNo evidence of deep venous thrombosis involving the lower extremity extending from the common femoral vein to the popliteal vein. Calf veins could not be evaluated.. X CT scan of the head 1. No acute intracranial pathology. 2. Stable right sphenoid wing meningioma. 3. Encephalomalacia left frontal lobe, stable. 4. Severe osteoarthritis of the right hip with partial subluxation and numerous juxta-articular lucencies. Loose bodies are present in the right hip joint. No acute fracture. There is a right hip joint effusion. Assessment/Plan Assessment/Plan In summary this 82-year-old female was admitted with the following problems #1. Syncope. Syncope is uncertain. It could be a combination of narcotics, mechanical fall, or related to cardiac Tate or tachyarrhythmias. BC a d-dimer is positive. I would suggest a VQ scan if she cannot have a CTA of the chest in order to exclude pulmonary embolism. Echocardiogram revealed left ventricular function and observe on telemetry. So far serial troponins are negative. #2. Hypertension next #3. Treated for coronary artery disease although she tells me her cardiac catheterization in 2016 revealed no occlusive disease. And no EKG or enzymatic evidence of ischemic heart disease at this time. #4. Spinal stenosis on oxycodone and fentanyl patch. #5. Osteoarthritis status post total left knee replacement. #6. History of meningioma Consult Acknowledgment - Thank you for your consult request.
--- NOTE | 2017-05-20 11:10 | PN- Att Addend ---
Attending Addendum Attending Brief Note Patient sitting in the chair with legs elevated. Her left leg still hurts and had difficulty getting up with a physical therapist. Also had some problems with constipation earlier this morning treatment was given. Her vital signs are stable, no fever. No major changes on physical patient was seen by cardiology Dr. Ariela Kiran, who examined the patient and gave recommendations one of them is get a VQ scan due to the elevated d-dimer but a negative leg ultrasound continue monitoring blood work 24 TOTALS 05/20 0000 05/19 0000 Intake Total 400 Output Total 1100 Balance -700 Intake, IV 250 Intake, Oral 150 Output, Urine 1100 Patient 224 lb Weight Weight Bed scale Measurement Method Current Medications Sig/Han Start time Last Medication Dose Route Stop Time Status Admin Allopurinol 100 MG DAILY 05/19 183 AC 05/19 PO 204 Aspirin 81 MG DAILY 05/20 1000 AC 05/20 PO 0819 Atorvastatin Calcium 10 MG 05/20 AC PO Atorvastatin Calcium 10 MG DAILY 05/19 183 DC 05/19 PO 204 Bisacodyl 10 MG ONCE ONE 05/20 0815 DC 05/20 [place] 05/20 0816 0817 Calcium Carbonate 500 MG BID 05/19 2199 AC 05/20 PO 0818 Celecoxib 200 MG BID 05/19 2200 AC 05/20 PO 0819 Celecoxib 200 MG ONCE ONE 05/19 1500 DC 05/19 PO 05/19 1501 1538 Duloxetine HCl 30 MG 05/20 2200 AC PO Duloxetine HCl 30 MG DAILY 05/19 1833 DC 05/19 PO 2048 Fentanyl Citrate 25 MCG Q48 05/21 1000 AC TOP Furosemide 20 MG DAILY 05/20 1000 AC 05/20 PO 0818 Lorazepam 0.5 MG 05/20 2200 AC PO 05/27 2159 Lorazepam 0.5 MG DAILY 05/19 183 DC 05/19 PO 05/26 1834 2047 Meclizine HCl 25 MG TIDPRN PRN 05/19 1845 AC 05/20 PO 0843 Metoprolol Succinate 25 MG 05/20 2200 AC PO Metoprolol Succinate 25 MG DAILY 05/19 183 DC 05/19 PO 2048 Omeprazole 20 MG DAILY AC 05/20 0700 AC 05/20 PO 0521 Oxycodone/ 1 TAB Q4P PRN 05/19 184 AC 05/20 Acetaminophen PO 0818 Polyethylene Glycol 17 GM DAILY NEEDED PRN 05/20 0815 AC PO Pregabalin 75 MG BID 05/19 2200 AC 05/20 PO 0819 Senna/Docusate Sodium 2 TAB DAILY NEEDED PRN 05/20 814 AC PO Sodium Chloride 1,000 ML ONCE ONE 05/20 0230 DC 05/20 IV 05/20 1029 0238 Sodium Chloride 1,000 ML ONCE ONE 05/19 1300 DC 05/19 IV 05/19 2059 1317 Laboratory Tests 05/20/17 0647: Anion Gap 10, Estimated GFR 33 L, BUN/Creatinine Ratio 37.3 H, Creatine Kinase 128, CBC w Diff NO MAN DIFF REQ, RBC 3.88 L, MCV 90.4, MCH 30.6, MCHC 33.9, RDW 13.7, MPV 9.9, Gran % 58.8, Lymphocytes % 29.2, Monocytes % 4.7, Eosinophils % 6.8 H, Basophils % 0.5, Absolute Granulocytes 3.5, Absolute Lymphocytes 1.7, Absolute Monocytes 0.3, Absolute Eosinophils 0.4, Absolute Basophils 0 05/19/17 1315: Urine Opiates Screen 543, Methadone Screen < 40, Barbiturate Screen < 60, Ur Phencyclidine Scrn < 6.00, Amphetamines Screen < 100, U Benzodiazepines Scrn < 85, Urine Cocaine Screen < 50, Urine Cannabis Screen < 5.00, Urine Color YEL, Urine Clarity CLEAR, Urine pH 7.0, Ur Specific [place] 1.010, Urine Protein NEG, Urine Ketones NEG, Urine Nitrite NEG, Urine Bilirubin NEG, Urine Urobilinogen 0.2, Ur Leukocyte Esterase NEG, Ur Microscopic EXAM NOT REQUIRED, Urine Hemoglobin NEG, Urine Glucose NEG 05/19/17 1202: Anion Gap 10, Estimated GFR 29 L, BUN/Creatinine Ratio 40.6 H, Glucose 83, Calcium 9.7, Total Bilirubin 0.6, AST 32, ALT 29, Alkaline Phosphatase 82, Creatine Kinase 248 H, Troponin I < 0.01, Total Protein 6.0 L, Albumin 3.9, Globulin 2.1, Albumin/Globulin Ratio 1.9, PT 10.6, INR 1.01, APTT 31, D-Dimer High Sensitivty 509 H, CBC w Diff NO MAN DIFF REQ, RBC 4.24, MCV 89.9, MCH 30.2 , MCHC 33.6, RDW 13.4, MPV 9.4, Gran % 63.7, Lymphocytes % 25.6, Monocytes % 5.3 , Eosinophils % 5.3 H, Basophils % 0.1, Absolute Granulocytes 5.1, Absolute Lymphocytes 2.1, Absolute Monocytes 0.4, Absolute Eosinophils 0.4, Absolute Basophils 0 Vital Signs Date Time Temp Pulse Resp B/P B/P Pulse O2 O2 Flow FiO2 Mean Ox Delivery Rate 05/20 0711 97.5 60 18 128/74 95 Room Air 05/19 2219 98.1 60 19 114/76 92 05/19 2048 58 112/54 05/19 1800 98.1 60 18 150/82 98 Room Air 05/19 1616 98.6 62 18 148/84 98 Room Air 05/19 1318 98.2 77 18 146/88 98 Room Air
[2017-05-20 14:16] VITALS: BP 136/68
--- NOTE | 2017-05-20 14:24 | NUCLEAR MEDICINE REPORT ---
EXAMINATION: PULMONARY VENTILATION PERFUSION STUDY CLINICAL INFORMATION: Syncope. COMPARISON: The previous lung scan dated 04/18/2015 is available for comparison. The most recent chest radiograph available for comparison is dated 04/27/2016. TECHNIQUE: Serial gamma scintillation camera images were obtained over the posterior chest during the single breath, equilibrium rebreathing and washout of 17.3 mCi Xe 133 gas. The patient then received 4.4 mCi Tc-99m MAA intravenously and a 6-view perfusion study was performed. FINDINGS: Ventilation images: On the single breath and equilibrium images there is decreased activity in the left lower lobe, likely due to an enlarged heart. Distribution of gas is otherwise homogeneous. During the washout phase is moderately severe retention diffusely. Perfusion images: No segmental perfusion defects are present. There is homogeneous distribution of activity bilaterally. There are no focal anatomic appearing perfusion defects present. The cardiac silhouette is moderately dilated in the mediastinum is dilated. The ventilation perfusion images are very well matched. Compared to the previous scan dated 04/18/2015, there has not been a significant change. IMPRESSION: Very low probability of pulmonary embolism.
--- NOTE | 2017-05-20 15:51 | Patient Discharge Instructions ---
Discharge Instructions General Discharge Information You were seen/treated for: Syncope Special Instructions: 1- please follow up with your PCP in 1 week of discharge Diet Continue normal diet: Yes Activity Full Activity/No Limits: Yes Acute Coronary Syndrome Inclusion Criteria At DC or during hospital stay patient has or had the following: ACS DIAGNOSIS No Discharge Core Measures Meds if any: Prescribed or Continued at Discharge Meds if any: NOT Prescribed or Continued at Discharge Congestive Heart Failure Inclusion Criteria At DC or during hospital stay patient has or had the following: CHF DIAGNOSIS No Discharge Core Measures Meds if any: Prescribed or Continued at Discharge Meds if any: NOT Prescribed or Continued at Discharge Cerebrovascular accident Inclusion Criteria At DC or during hospital stay patient has or had the following: CVA/TIA Diagnosis No Discharge Core Measures Meds if any: Prescribed or Continued at Discharge Meds if any: NOT Prescribed or Continued at Discharge Venous thromboembolism Inclusion Criteria VTE Diagnosis No VTE Type NONE VTE Confirmed by (Test) NONE Discharge Core Measures - Per Current guidelines, there needs to be overlap - treatment for the first 5 days of Warfarin therapy. - If discharged on Warfarin prior to 5 days of - overlap therapy, the patient will need to be - assessed for post discharge needs including - *Post discharge parental anticoagulation - *Warfarin and/or parental anticoagulation education - *Follow up date to check INR post discharge At least 5 days overlap therapy as Inpatient No Meds if any: Prescribed or Continued at Discharge Note: Overlap Therapy is Warfarin and Anticoagulant Meds if any: NOT Prescribed or Continued at Discharge
--- NOTE | 2017-05-20 17:39 | RADIOLOGY REPORT ---
EXAMINATION: XR PORTABLE CHEST CLINICAL INFORMATION: Syncope COMPARISON: 09/16/2015 TECHNIQUE: Portable frontal view of the chest was obtained. FINDINGS: Markedly limited evaluation due to the patient's body habitus and incomplete imaging of the costophrenic angles and left lung base. No definite focal consolidation, pleural effusion, or pneumothorax. Skin folds of the patient create double densities involving the lower lung zones. Stable cardiomegaly. Progressed degenerative change of the left shoulder which is severe. No acute osseous abnormality. IMPRESSION: Markedly limited evaluation due to patient's body habitus and cut off of the patient's lung bases. No definite acute pulmonary process. Stable cardiomegaly.
[2017-05-20 22:21] VITALS: BP 122/64
[2017-05-21 06:49] VITALS: BP 142/82
--- NOTE | 2017-05-21 07:05 | PN- Housestaff ---
Subjective Follow-up For: #Fall #Elevated CPK #ALEXA on CKD #History of hypertension, hyperlipidemia, CAD, vertigo #Depression # skin tear on the coccyx present on admission Tele-Events Since Last Visit: No evidence, NSR , 63 Subjective: Patient is seen and examined at bedside, she denies any complaints including fever, chills, nausea, vomiting, diarrhea or constipation Review of Systems Constitutional: Reports: see HPI. Objective Last 24 Hrs of Vital Signs/I&O Vital Signs Date Time Temp Pulse Resp B/P B/P Pulse O2 O2 Flow FiO2 Mean Ox Delivery Rate 05/21 1040 Room Air 05/21 0649 98.0 63 18 142/82 92 Room Air 05/20 2221 98.0 64 18 122/64 97 Room Air 05/20 2130 61 122/64 05/20 1416 98.0 72 18 136/68 98 Room Air Intake & Output 05/21 1600 05/21 0800 05/21 0000 Intake Total 120 Output Total Balance 120 Intake, Oral 120 Physical Exam General Appearance: Alert, Oriented X3, Cooperative, No Acute Distress HEENT: Atraumatic, PERRLA, EOMI, Mucous Membr. moist/pink Cardiovascular: Normal S1, Normal S2, No Murmurs Lungs: Clear to Auscultation Abdomen: Normal Bowel Sounds, Soft, No Tenderness Neurological: Normal Speech, Strength at 5/5 X4 Ext, Normal Tone Extremities: No Clubbing, No Cyanosis, 1 + pitting edema in the left foot Vascular: Normal Pulses Assessment/Plan Assessment: 82 years old female with past medical history of hypertension, hyperlipidemia, coronary artery disease, [place], vertigo GERD presented to the ER by EMS after having unwitnessed fall yesterday, the patient reports that she was in her usual state of health yesterday, she had been up in the afternoon, she woke up around 2 PM, she was in her kitchen cleaning when her walker tripped over her stool and she fell down, the patient was on the floor trying to get up however she kept falling asleep multiple times and was not able to get up all night, she was on the floor since 8 PM to 9 AM. Most likely her fall was mechanical however there is a possibility for side effect of her pain meds including Percocet and fentanyl patch, cardiological causes of syncope has to be ruled out given his past cardiac history, CT head which ruled out acute intracranial pathology and Doppler lower extremity were negative which ruled out DVT #Fall #Elevated CPK #ALEXA on CKD #History of hypertension, hyperlipidemia, CAD, vertigo #Depression # skin tear on the coccyx present on admission Plan: Monitor on telemetry Vitals every shift Close monitoring of I's and O's Follow up on cardiology recommendation PT evaluation VQ scan ruled out PE Encourage oral intake Continue home meds Social work consult appreciated wound care consult appreciated Patient's pain most likely going to STR tomorrow if a bed is available Full code DVT prophylaxis with subcutaneous heparin Heart healthy diet Problem List: 1. Syncope and collapse Pain Ratin Pain Location: left leg Pain Goal: Pain 4 or less Pain Plan: pathway Tomorrow's Labs & Rationales: cbc bep
[2017-05-21 08:01] LABS: ABSOLUTE BASOPHIL COUNT 0 /CUMM (0.0-0.2); ABSOLUTE EOSINOPHIL COUNT 0.4 /CUMM (0.0-0.7); ABSOLUTE LYMPH COUNT 1.9 /CUMM (1.2-3.4); ABSOLUTE MONOCYTE COUNT 0.3 /CUMM (0.10-0.60); BASOPHIL % 0.3 % (0.0-2.0); EOSINOPHIL % 6.1 % (0-5); GRANULOCYTE % 59.8 % (42.2-75.2); HEMATOCRIT 32.9 % (37-47); MEAN CORPUSCULAR HGB 30.6 PG (27.0-31.0); MEAN CORPUSCULAR HGB CONC 33.6 G/DL (33.0-37.0); MEAN CORPUSCULAR VOLUME 91.1 FL (81.0-99.0); MEAN PLATELET VOLUME 10.1 FL (7.4-10.4); PLATELET COUNT 102 /CUMM (130-400); RBC DISTRIBUTION WIDTH 14.1 % (11.5-14.5); RED BLOOD CELL CT 3.61 /CUMM (4.20-5.40); WHITE BLOOD CELL COUNT 6.6 /CUMM (4.8-10.8)
--- NOTE | 2017-05-21 10:28 | Discharge Summary ---
See Addendum Visit Information Visit Dates Admission Date: 05/19/17 Discharge Date: 05/22/2017 Hospital Course Course Attending Physician: Nicole POZO,Ray Primary Care Physician: Nicole POZO,Ray Hospital Course: 82 years old female with past medical history of hypertension, hyperlipidemia, coronary artery disease, [place], vertigo GERD presented to the ER by EMS after having unwitnessed fall ED course - Vital signs temperature 98.2, pulse 76, respiratory 18, blood pressure 153/84, SPO2 98% on room air. Blood workup showed hemoglobin 12.8, hematocrit 38.1, platelet count 125, granulocytes 63.7, eosinophil 5.3, serum sodium 145, potassium 2.9, carbon DEXA 35, anion gap 10, BUN 69, creatinine 1.7(baseline creatinine 1.1), PT/INR 10.6/ 1.01, calcium 9.7, total bilirubin 0.6, AST 32, ALT 29, alkaline phosphatase 82, creatinine kinase 248, troponin less than 0.01, u tox negative, urinalysis negative. CT head -no acute intraocular pathology, stable right sphenoid wing meningioma, encephalomalacia of left frontal lobe. CT of the right hip -stable osteoarthritis with partial subluxation and numerous just articular lucencies, some loose bodies in the right hip joint. No acute fracture. There is right hip joint effusion Venous Doppler study -no any evidence of DVT She was given 1 L of normal saline, she had a urine output of 1100 cc. Unwitnessed machanical fall seconadry to physcial deconditioning, dehydration found to have ALEXA -High creatinine kinase, no evidence of PE/Arrythmia We admitted the patient to telemetry floor and watched for any arrhythmias. We gave IV fluids.Orthostaic vitals were negative. Cardiology consult obtained advised D dimer(509) and f/u VQ scan which showed low probabillity for PE.We regularly monitored CPK/Renal function, improved. At time of discharge Cr 1.7. There was no evidence of arrythmia. Hospital course was uneventful. We advised to f/u wih PCP with in a week for f/u BEP. Left lower leg swelling and tenderness -No evidence of DVT/PE Color Doppler of left leg does not show any evidence of DVT. We treated by non medical measure elevation of leg. MDD/Bereavment - We obtained psyche consult, advised to increased dose of Duloxetin and if needed than use melatonin/ Trazodon for sleep. Avoid BDZ. We took CM/Social work/PT consult and it was decide to discharge to [facility]. Allergies: Coded Allergies: latex (HIVES 05/19/17) Disposition Summary Disposition Principal Diagnosis: Mechanical fall, no evidence of stroke and arrhythmia Additional Diagnosis: hypertension, hyperlipidemia, coronary artery disease, [place], GERD, chronic back pain, osteoarthritis, depression, Hx of vertigo, history of tachycardia induced cardiomyopathy, non-ST elevation [place] 2014, history of meningioma, had surgery history of sleep apnea, 2D echo(2014) -stage I diastolic dysfunction, LV ejection fraction 50% Discharge Disposition: SNF Discharge Instructions General Discharge Information Code Status: Full Code Patient's Diet: Heart healthy diet Patient's Activity: As tolerated Follow-Up Instructions/Appts: Please follow-up with your PCP within a week of discharge Please follow-up with the marketing systems manager as needed. Please take the medication as advised Medications at Discharge Discharge Medications: Continue taking these medications: Duloxetine Hydrochloride (Cymbalta) 30 MG CAPSULE. 1 Capsule ORAL DAILY Comments: Last Taken:05/21/17 Time:2200 Furosemide (Furosemide) 20 MG TABLET 1 Tablet ORAL DAILY Comments: Last Taken:05/22/17 Time:1000 Lansoprazole (Lansoprazole) 30 MG CAPSULE.DR 1 Capsule ORAL DAILY Comments: Last Taken:05/22/17 Time:0700 PRILOSEC Lorazepam (Ativan) 0.5 MG TABLET 1 Tablet ORAL DAILY Comments: Last Taken:05/21/17 Time:2200 Potassium Chloride (K-Tab ER) 20 MEQ TABLET.ER 1 Tablet ORAL DAILY Pregabalin (Lyrica) 75 MG CAPSULE 1 Capsule ORAL TWICE DAILY Comments: Last Taken:05/22/17 Time:1000 Allopurinol (Allopurinol) 100 MG TABLET 1 Tablet ORAL DAILY Comments: Last Taken:05/22/17 Time:1000 Calcium Carbonate/Vitamin D3 (Os-Akil 500+D3 Caplet) 500 MG-600 TABLET 1 Tablet ORAL TWICE DAILY Comments: Last Taken:05/22/17 Time:1000 Aspirin (Aspirin*) 81 MG TAB.CHEW 1 Tablet ORAL DAILY Comments: Last Taken:05/22/17 Time:1000 [place]-3 Acid Ethyl Esters (Lovaza) 1 GRAM CAPSULE 2 Capsule ORAL TWICE DAILY Fentanyl (Duragesic) 25 MCG/HOUR PATCH.TD72 1 Patch On the skin EVERY 48 HOURS (Every 2 days) Comments: Last Taken:05/21/17 Time:1000 Metoprolol Succ XL (Toprol XL) 25 MG TAB 1 Tablet ORAL DAILY Comments: Last Taken:05/22/17 Time:1000 Celecoxib (Celebrex) 200 MG CAPSULE 1 Capsule ORAL TWICE DAILY Comments: Last Taken:05/22/17 Time:1000 Multivitamin (Daily Multiple Vitamin) 1 EACH TABLET 1 Tablet ORAL DAILY Atorvastatin Calcium (Atorvastatin Calcium) 10 MG TABLET 1 Tablet ORAL DAILY Qty = 30 Comments: Last Taken:05/21/17 Time:2200 Hydrocodone/Acetaminophen (Hydrocodon-Acetaminoph 7.5-300) 7.5 MG-300 MG TABLET 1 Tablet ORAL DAILY Qty = 60 Comments: Last Taken:05/21/17 Time:1000 Meclizine HCl (Meclizine HCl) 25 MG TABLET 1 Tablet ORAL THREE TIMES A DAY NEEDED as needed for DIZZINESS Telmisartan/Hydrochlorothiazid (Micardis Hct 80-25 MG Tablet) 80 MG-25 MG TABLET 1 Tablet ORAL TWICE DAILY Qty = 180 Copies To: Kian POZO,Pop Haile Attending Review Statement Documenting Attending: Nicole POZO,Ray
--- NOTE | 2017-05-21 11:11 | PN- Att Addend ---
Attending Addendum Attending Brief Note Patient in bed still feels weak. No signs of any syncopal episodes or any arrhythmias Vital signs are stable no fever or no new changes on physical. VQ scan of the lungs showed no evidence of pulmonary emboli. The leg still hurts a little bit. Her BUN and creatinine are still slightly elevated. Will encourage her to drink fluids physical therapy reevaluation. Appreciate cardiology's input and recommendations. Patient might benefit from short-term rehabilitation maybe after that assisted living. Intake & Output 05/21 1600 05/21 0400 05/20 1600 05/20 0400 05/19 1600 05/19 0400 Intake Total 120 2412.5 400 0 Output Total 1100 Balance 120 2412.5 400 -1100 Intake, IV 1812.5 250 Intake, Oral 120 600 150 0 Number 4 Bowel Movements Output, Urine 1100 Patient 224 lb 224 lb Weight Weight Bed scale Measurement Method Current Medications Sig/Ahn Start time Last Medication Dose Route Stop Time Status Admin Allopurinol 100 MG DAILY 05/19 1832 AC 05/21 PO 1017 Aspirin 81 MG DAILY 05/20 1000 AC 05/21 PO 1017 Atorvastatin Calcium 10 MG 05/20 2200 AC 05/20 PO 2130 Calcium Carbonate 500 MG BID 05/19 2200 AC 05/21 PO 1017 Celecoxib 200 MG BID 05/19 2200 AC 05/21 PO 1017 Duloxetine HCl 30 MG 05/20 2200 AC 05/20 PO 2126 Fentanyl Citrate 25 MCG Q48 05/21 1000 AC 05/21 TOP 1024 Furosemide 20 MG DAILY 05/20 1000 AC 05/21 PO 1017 Lorazepam 0.5 MG 05/20 2200 AC 05/20 PO 05/27 2159 2125 Meclizine HCl 25 MG TIDPRN PRN 05/19 1845 AC 05/20 PO 0843 Metoprolol Succinate 25 MG 05/20 2200 AC 05/20 PO 2130 Nystatin 1 PATRICIA TID 05/21 0230 AC 05/21 TOP 1018 Omeprazole 20 MG DAILY AC 05/20 0700 AC 05/21 PO 0627 Oxycodone/ 1 TAB Q4P PRN 05/19 1845 AC 05/21 Acetaminophen PO 1018 Patient Medication 1 ED ONE ONE 05/20 1515 DC 05/20 Teaching ED 05/20 1516 1527 Polyethylene Glycol 17 GM DAILY NEEDED PRN 03/01 0815 AC PO Pregabalin 75 MG BID 05/19 2199 AC 05/21 PO 1018 Senna/Docusate Sodium 2 TAB DAILY NEEDED PRN 05/20 08 AC PO Laboratory Tests 05/21/17 0630: Anion Gap 10, Estimated GFR 36 L, BUN/Creatinine Ratio 35.7 H, CBC w Diff NO MAN DIFF REQ, RBC 3.61 L, MCV 91.1, MCH 30.6, MCHC 33.6, RDW 14.1, MPV 10.1, Gran % 59.8, Lymphocytes % 29.1, Monocytes % 4.7, Eosinophils % 6.1 H, Basophils % 0.3, Absolute Granulocytes 4.0, Absolute Lymphocytes 1.9, Absolute Monocytes 0.3, Absolute Eosinophils 0.4, Absolute Basophils 0 05/20/17 0647: Anion Gap 10, Estimated GFR 33 L, BUN/Creatinine Ratio 37.3 H, Creatine Kinase 128, CBC w Diff NO MAN DIFF REQ, RBC 3.88 L, MCV 90.4, MCH 30.6, MCHC 33.9, RDW 13.7, MPV 9.9, Gran % 58.8, Lymphocytes % 29.2, Monocytes % 4.7, Eosinophils % 6.8 H, Basophils % 0.5, Absolute Granulocytes 3.5, Absolute Lymphocytes 1.7, Absolute Monocytes 0.3, Absolute Eosinophils 0.4, Absolute Basophils 0 05/19/17 1315: Urine Opiates Screen 543, Methadone Screen < 40, Barbiturate Screen < 60, Ur Phencyclidine Scrn < 6.00, Amphetamines Screen < 100, U Benzodiazepines Scrn < 85, Urine Cocaine Screen < 50, Urine Cannabis Screen < 5.00, Urine Color YEL, Urine Clarity CLEAR, Urine pH 7.0, Ur Specific [place] 1.010, Urine Protein NEG, Urine Ketones NEG, Urine Nitrite NEG, Urine Bilirubin NEG, Urine Urobilinogen 0.2, Ur Leukocyte Esterase NEG, Ur Microscopic EXAM NOT REQUIRED, Urine Hemoglobin NEG, Urine Glucose NEG 05/19/17 1202: Anion Gap 10, Estimated GFR 29 L, BUN/Creatinine Ratio 40.6 H, Glucose 83, Calcium 9.7, Total Bilirubin 0.6, AST 32, ALT 29, Alkaline Phosphatase 82, Creatine Kinase 248 H, Troponin I < 0.01, Total Protein 6.0 L, Albumin 3.9, Globulin 2.1, Albumin/Globulin Ratio 1.9, PT 10.6, INR 1.01, APTT 31, D-Dimer High Sensitivty 509 H, CBC w Diff NO MAN DIFF REQ, RBC 4.24, MCV 89.9, MCH 30.2 , MCHC 33.6, RDW 13.4, MPV 9.4, Gran % 63.7, Lymphocytes % 25.6, Monocytes % 5.3 , Eosinophils % 5.3 H, Basophils % 0.1, Absolute Granulocytes 5.1, Absolute Lymphocytes 2.1, Absolute Monocytes 0.4, Absolute Eosinophils 0.4, Absolute Basophils 0 Vital Signs Date Time Temp Pulse Resp B/P B/P Pulse O2 O2 Flow FiO2 Mean Ox Delivery Rate 05/21 1040 Room Air 05/21 0649 98.0 63 18 142/82 92 Room Air 05/20 2221 98.0 64 18 122/64 97 Room Air 05/20 2130 61 122/64 05/20 1416 98.0 72 18 136/68 98 Room Air
--- NOTE | 2017-05-21 11:30 | PN- Cardiology ---
Subjective Subjective: The patient is awake, alert The events of the last 24 hours as well as telemetry were reviewed. Review of Systems: The review of systems is negative for chest pains, palpitations nor lightheadedness. The remainder of the 14 point review of systems is noncontributory with the exception of above. Objective Vital Signs and I&Os Vital Signs Date Time Temp Pulse Resp B/P B/P Pulse O2 O2 Flow FiO2 Mean Ox Delivery Rate 05/21 1040 Room Air 05/21 0649 98.0 63 18 142/82 92 Room Air 05/20 2221 98.0 64 18 122/64 97 Room Air 05/20 2130 61 122/64 05/20 1416 98.0 72 18 136/68 98 Room Air Intake & Output 05/21 1600 05/21 0805/21 0000 05/20 1600 05/20 0800 05/20 0000 Intake Total 120 1375 1037.5 400 Output Total Balance 120 1375 1037.5 400 Intake, IV 875 937.5 250 Intake, Oral 120 500 100 150 Number 3 1 Bowel Movements Patient 224 lb 224 lb Weight Weight Bed scale Measurement Method Physical Exam: General: Nontoxic, no apparent distress. HEENT: Sclera and conjunctiva within normal limits, without xanthelasmas. Neck: Carotids 2+ without bruits. Respiratory: Scattered rhonchi, air movement is decreased at bases, without accessory respiratory muscle use. Heart: Regular rate and rhythm, without murmurs, without JVD. Abdomen: Soft, nontender, no masses, normoactive bowel sounds. Extremities: Without clubbing, cyanosis, without edema. Neuro: Nonfocal exam, strength, 5 out of 5 Skin: Within normal limits without lesions. Psych: Mood and affect: Normal Current Medications: Current Medications Sig/Han Start time Last Medication Dose Route Stop Time Status Admin Allopurinol 100 MG DAILY 05/19 183 AC 05/21 PO 1017 Aspirin 81 MG DAILY 05/20 999 AC 05/21 PO 101 Atorvastatin Calcium 10 MG 05/20 AC 05/20 PO 2130 Calcium Carbonate 500 MG BID 05/19 2199 AC 05/21 PO 1017 Celecoxib 200 MG BID 05/19 2199 AC 05/21 PO 101 Duloxetine HCl 30 MG 05/20 AC 05/20 PO 2126 Fentanyl Citrate 25 MCG Q48 05/21 1000 AC 05/21 TOP 1024 Furosemide 20 MG DAILY 05/20 1000 AC 05/21 PO 1017 Lorazepam 0.5 MG 05/20 AC 05/20 PO 05/27 2159 2125 Meclizine HCl 25 MG TIDPRN PRN 05/19 1845 AC 05/20 PO 0843 Metoprolol Succinate 25 MG 05/20 220 AC 05/20 PO 2130 Nystatin 1 PATRICIA TID 05/21 0230 AC 05/21 TOP 1018 Omeprazole 20 MG DAILY AC 05/20 0700 AC 05/21 PO 0627 Oxycodone/ 1 TAB Q4P PRN 05/19 1845 AC 05/21 Acetaminophen PO 1018 Patient Medication 1 ED ONE ONE 05/20 1515 DC 05/20 Teaching ED 05/20 1516 1527 Polyethylene Glycol 17 GM DAILY NEEDED PRN 05/20 0815 AC PO Pregabalin 75 MG BID 05/19 2199 AC 05/21 PO 1018 Senna/Docusate Sodium 2 TAB DAILY NEEDED PRN 05/20 0815 AC PO Results Last 48 Hrs of Labs/Mics: Laboratory Tests 05/21/17 0630: Anion Gap 10, Estimated GFR 36 L, BUN/Creatinine Ratio 35.7 H, CBC w Diff NO MAN DIFF REQ, RBC 3.61 L, MCV 91.1, MCH 30.6, MCHC 33.6, RDW 14.1, MPV 10.1, Gran % 59.8, Lymphocytes % 29.1, Monocytes % 4.7, Eosinophils % 6.1 H, Basophils % 0.3, Absolute Granulocytes 4.0, Absolute Lymphocytes 1.9, Absolute Monocytes 0.3, Absolute Eosinophils 0.4, Absolute Basophils 0 05/20/17 0647: Anion Gap 10, Estimated GFR 33 L, BUN/Creatinine Ratio 37.3 H, Creatine Kinase 128, CBC w Diff NO MAN DIFF REQ, RBC 3.88 L, MCV 90.4, MCH 30.6, MCHC 33.9, RDW 13.7, MPV 9.9, Gran % 58.8, Lymphocytes % 29.2, Monocytes % 4.7, Eosinophils % 6.8 H, Basophils % 0.5, Absolute Granulocytes 3.5, Absolute Lymphocytes 1.7, Absolute Monocytes 0.3, Absolute Eosinophils 0.4, Absolute Basophils 0 05/19/17 1315: Urine Opiates Screen 543, Methadone Screen < 40, Barbiturate Screen < 60, Ur Phencyclidine Scrn < 6.00, Amphetamines Screen < 100, U Benzodiazepines Scrn < 85, Urine Cocaine Screen < 50, Urine Cannabis Screen < 5.00, Urine Color YEL, Urine Clarity CLEAR, Urine pH 7.0, Ur Specific [place] 1.010, Urine Protein NEG, Urine Ketones NEG, Urine Nitrite NEG, Urine Bilirubin NEG, Urine Urobilinogen 0.2, Ur Leukocyte Esterase NEG, Ur Microscopic EXAM NOT REQUIRED, Urine Hemoglobin NEG, Urine Glucose NEG 05/19/17 1202: Anion Gap 10, Estimated GFR 29 L, BUN/Creatinine Ratio 40.6 H, Glucose 83, Calcium 9.7, Total Bilirubin 0.6, AST 32, ALT 29, Alkaline Phosphatase 82, Creatine Kinase 248 H, Troponin I < 0.01, Total Protein 6.0 L, Albumin 3.9, Globulin 2.1, Albumin/Globulin Ratio 1.9, PT 10.6, INR 1.01, APTT 31, D-Dimer High Sensitivty 509 H, CBC w Diff NO MAN DIFF REQ, RBC 4.24, MCV 89.9, MCH 30.2 , MCHC 33.6, RDW 13.4, MPV 9.4, Gran % 63.7, Lymphocytes % 25.6, Monocytes % 5.3 , Eosinophils % 5.3 H, Basophils % 0.1, Absolute Granulocytes 5.1, Absolute Lymphocytes 2.1, Absolute Monocytes 0.4, Absolute Eosinophils 0.4, Absolute Basophils 0 Assessment/Plan Assessment/Plan #1. Syncope/fall: There does not appear to be a primary cardiac etiology to the reason patient. A VQ scan was as well negative for a pulmonary embolism. #2. Hypertension: Current mildly suboptimally controlled. Further adjustments will be made as an outpatient. #3. Spinal stenosis on oxycodone and fentanyl patch. #4. Osteoarthritis status post total left knee replacement. #5. History of meningioma Continue telemetry? No
--- NOTE | 2017-05-21 14:00 | Cons- Psychiatry ---
Psychiatric Consult Date of Consult: 05/21/17 Reason for Consult: "Depression" History of Present Illness: 82-year-old female brought in by ambulance from assisted living on 05/19/2017 at 1029, after an unwitnessed fall with her walker backwards; denies head strike. The patient was admitted to medicine with chief complaint of syncope. Past medical history includes hypertension, hyperlipidemia, coronary artery disease, [place], vertigo, GERD. She reports that she lost 50 pounds since her spouse in 2015, which she attributes to starting duloxetine for depression. The patient reports that her beloved spouse in 2015, and she admits to sadness and depression due to this, as well as unsettled marital status for her son in [place] and her daughter, who lives locally. Allergies: Coded Allergies: latex (HIVES 05/19/17) Current Medications: Current Medications Sig/Han Start time Last Medication Dose Route Stop Time Status Admin Allopurinol 100 MG DAILY 05/19 1832 AC 05/21 PO 1017 Aspirin 81 MG DAILY 05/20 1000 AC 05/21 PO 1017 Atorvastatin Calcium 10 MG 05/20 2200 AC 05/20 PO 2130 Calcium Carbonate 500 MG BID 05/19 2200 AC 05/21 PO 1017 Celecoxib 200 MG BID 05/19 2200 AC 05/21 PO 1017 Duloxetine HCl 30 MG 05/20 2200 AC 05/20 PO 2126 Fentanyl Citrate 25 MCG Q48 05/21 1000 AC 05/21 TOP 1024 Furosemide 20 MG DAILY 05/20 1000 AC 05/21 PO 1017 Lorazepam 0.5 MG 05/20 2200 AC 05/20 PO 05/27 2159 2125 Meclizine HCl 25 MG TIDPRN PRN 05/19 1845 AC 05/20 PO 0843 Metoprolol Succinate 25 MG 05/20 2200 AC 05/20 PO 2130 Nystatin 1 PATRICIA TID 05/21 0230 AC 05/21 TOP 1018 Omeprazole 20 MG DAILY AC 05/20 0700 AC 05/21 PO 0627 Oxycodone/ 1 TAB Q4P PRN 05/19 1845 AC 05/21 Acetaminophen PO 1018 Patient Medication 1 ED ONE ONE 05/20 1515 DC 05/20 Teaching ED 05/20 1516 1527 Polyethylene Glycol 17 GM DAILY NEEDED PRN 05/20 0815 AC PO Pregabalin 75 MG BID 05/19 2200 AC 05/21 PO 1018 Senna/Docusate Sodium 2 TAB DAILY NEEDED PRN 05/20 0815 AC PO Past History Past Medical History Neurological: vertigo, MENINGOMA EENT: NONE Cardiovascular: CAD, hypertension, hyperlipidemia Respiratory: NONE Gastrointestinal: GERD Hepatic: NONE Renal: NONE Musculoskeletal: chronic back pain, osteoarthritis, spinal stenosis Psychiatric: anxiety, depression Endocrine: NONE Blood Disorders: NONE Cancer(s): NONE BIOMETRICS CONSULTANT/Reproductive: NONE Past Surgical History Surgical History: appendectomy, colon resection, knee replacement, CYBER KNIFE Psychosocial History Strengths/Capabilities: Motivated for treatment Physical Limitations (Interventions): Morbidly obese; ambulation not witnessed during this visit, but the patient usually uses a walker. Psychiatric Treatment History Psych Treatment Psychiatric Treatment Yes Inpatient Treatment No (denies) Outpatient Treatment No (treatment through primary care) Location of Treatment Dr. 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 Substance Use/Abuse History Drug Use/Abuse Substances Used/Abused No (denies) Substance Abuse Treatment Substance Abuse Treatment Past Substance Abuse [place] No Assessment/Plan Mental Status Orientation: Person, Place, Situation Affect: Depressed (intermittent eye contact) Speech: WNL (difficult to interrupt) Neuro-vegetative: Sleep Disturbance Mental Status Exam: The patient is lying in her bed using her iPhone; she is calm and pleasant. The patient is alert and oriented. She reports disturbance in her sleep, and describes sleeping throughout the day, and is unable to provide an accurate number of hours of sleep. She reports that her sleep has improved since she was diagnosed with obstructive sleep apnea, and had surgery to correct it. She currently follows with Giovani Moore MD. She reports that her appetite is "okay." She scales her depressive feelings as 6/10," if that was just about my , it would be 10/10." She denies hopelessness, helplessness and worthlessness. She endorses guilt feelings because her did almost anything for her, but it is uncertain if she is blaming herself for his illness, or for not doing more to help him. She scales anxiety as 6/10. 10/10 is the worst. The patient reports that Cymbalta 30 mg daily as helped both depression and anxiety, and she started this before her in 2015. She denies suicidal or homicidal ideation, and denies any suicide attempts. "I'm not leaving this earth until my grandkids are settled. I wouldn't do away with myself, but I'll be ready to go." The patient again denies active or passive suicidal ideation. She feels that her depression and anxiety would be mostly relieved if her son's divorce were finally final after many years, and her daughter's life were straightened out in both children were happy. Patient reports that she has been considering moving to [place] with her son. She reports that she grew up in [facility]. She denies auditory or visual hallucinations, and presents no moshe delusions. She denies the use of alcohol or street drugs. Lab Results: Laboratory Tests 05/21 0630 Chemistry Sodium (137 - 145 mmol/L) 141 Potassium (3.5 - 5.1 mmol/L) 3.8 Chloride (98 - 107 mmol/L) 100 Carbon Dioxide (22 - 30 mmol/L) 32 H Anion Gap (5 - 16) 10 BUN (7 - 17 mg/dL) 50 H Creatinine (0.5 - 1.0 mg/dL) 1.4 H Estimated GFR (>60 ml/min) 36 L BUN/Creatinine Ratio (7 - 25 %) 35.7 H Hematology CBC w Diff NO MAN DIFF REQ WBC (4.8 - 10.8 /CUMM) 6.6 RBC (4.20 - 5.40 /CUMM) 3.61 L Hgb (12.0 - 16.0 G/DL) 11.1 L Hct (37 - 47 %) 32.9 L MCV (81.0 - 99.0 FL) 91.1 MCH (27.0 - 31.0 PG) 30.6 MCHC (33.0 - 37.0 G/DL) 33.6 RDW (11.5 - 14.5 %) 14.1 Plt Count (130 - 400 /CUMM) 102 L MPV (7.4 - 10.4 FL) 10.1 Gran % (42.2 - 75.2 %) 59.8 Lymphocytes % (20.5 - 51.1 %) 29.1 Monocytes % (1.7 - 9.3 %) 4.7 Eosinophils % (0 - 5 %) 6.1 H Basophils % (0.0 - 2.0 %) 0.3 Absolute Granulocytes (1.4 - 6.5 /CUMM) 4.0 Absolute Lymphocytes (1.2 - 3.4 /CUMM) 1.9 Absolute Monocytes (0.10 - 0.60 /CUMM) 0.3 Absolute Eosinophils (0.0 - 0.7 /CUMM) 0.4 Absolute Basophils (0.0 - 0.2 /CUMM) 0 Diffential Diagnosis: 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 Lorazepam, and other benzodiazepines, can increase the risk, or worsen, delirium , especially in the elderly. If this medication is given at night to help her get to sleep, we would suggest discontinuing this, and exploring other options, including melatonin or trazodone. The patient does not wish to increase her duloxetine/Cymbalta for depression at this time, even though she is scoring pressured and anxiety as 6/10. We feel that she would benefit from an increase to 60 mg by mouth daily, which can be divided if tolerated in the evening. She did express an interest in coming to [facility] outpatient psychiatry, in order to talk with somebody. She has ongoing bereavement and depressive issues regarding the of her approximately 1-1/2 years ago, and may also benefit from membership in a bereavement group. She would also benefit from learning techniques to be supportive of her children, while not becoming emotionally enmeshed in their daily lives. Provisional Treatment Plan: 1. If the patient discharges to short-term rehabilitation, please ask them to call and make an appointment at [facility] outpatient psychiatry, when her discharge date is known. We can be reached at [phone], and are located at [address] [place] [address]. The patient had expressed an interest in this. 2. If the patient allows, consider increasing duloxetine to 60 mg by mouth every morning. Until the patient's sleep disturbance is resolved, we do not recommend divided dosing on this medication. 3. Please eliminate or reduce any medications that might contribute to delirium or altered mental status, in particular lorazepam and her pain medications may be contributing to her risk for falls. 4. If the patient is having difficulty with sleep, please consider teaching on sleep hygiene . If that does not work by itself, Please consider melatonin 3- 5 mg by mouth before bedtime, or, alternatively, ramelteon 8 mg before bedtime. If she still has difficulty getting to sleep, consider trazodone 50-100 mg by mouth one hour before bedtime. Please note that trazodone at these hypnotic doses, may slightly prolong QTC; please monitor EKG for arrhythmia or prolongation of QTC beyond 475 ms. The patient is cleared for discharge from psychiatry viewpoint. Thank you for this consult.
[2017-05-21 14:32] VITALS: BP 116/70
[2017-05-22 00:28] VITALS: BP 112/64
[2017-05-22 06:55] VITALS: BP 118/62
[2017-05-22 08:37] LABS: ABSOLUTE BASOPHIL COUNT 0 /CUMM (0.0-0.2); ABSOLUTE EOSINOPHIL COUNT 0.4 /CUMM (0.0-0.7); ABSOLUTE GRANULOCYTE CT 3.9 /CUMM (1.4-6.5); ABSOLUTE LYMPH COUNT 2.3 /CUMM (1.2-3.4); ABSOLUTE MONOCYTE COUNT 0.4 /CUMM (0.10-0.60); BASOPHIL % 0.5 % (0.0-2.0); EOSINOPHIL % 6.1 % (0-5); GRANULOCYTE % 55.2 % (42.2-75.2); HEMATOCRIT 34.7 % (37-47); MEAN CORPUSCULAR HGB 30.5 PG (27.0-31.0); MEAN CORPUSCULAR HGB CONC 33.8 G/DL (33.0-37.0); MEAN CORPUSCULAR VOLUME 90.4 FL (81.0-99.0); MEAN PLATELET VOLUME 10.2 FL (7.4-10.4); PLATELET COUNT 119 /CUMM (130-400); RBC DISTRIBUTION WIDTH 14.1 % (11.5-14.5); RED BLOOD CELL CT 3.84 /CUMM (4.20-5.40)
--- NOTE | 2017-05-22 09:17 | PN- Housestaff ---
Subjective Follow-up For: #Fall #Elevated CPK #ALEXA on CKD #History of hypertension, hyperlipidemia, CAD, vertigo #Depression # skin tear on the coccyx present on admission Tele-Events Since Last Visit: No evidence, NSR , 65 Subjective: Patient is seen and examined at bedside, she denies any complaints including fever, chills, nausea, vomiting, diarrhea or constipation Review of Systems Constitutional: Reports: see HPI. Objective Last 24 Hrs of Vital Signs/I&O Vital Signs Date Time Temp Pulse Resp B/P B/P Pulse O2 O2 Flow FiO2 Mean Ox Delivery Rate 05/22 1315 98.0 66 18 118/62 05/22 0655 98.0 66 18 118/62 95 Room Air 05/22 0028 98.4 77 20 112/64 95 Room Air 05/21 2238 58 98/54 Intake & Output 05/22 1600 05/22 0800 05/22 0000 Intake Total 410 Output Total 300 300 Balance -300 110 Intake, IV 10 Intake, Oral 400 Number 0 Bowel Movements Output, Urine 300 300 Physical Exam General Appearance: Alert, Oriented X3, Cooperative, No Acute Distress Skin: No Rashes, No Breakdown HEENT: Atraumatic, PERRLA, EOMI, Mucous Membr. moist/pink Neck: Supple, No JVD Cardiovascular: Normal S1, Normal S2, No Murmurs Lungs: Clear to Auscultation Abdomen: Normal Bowel Sounds, Soft, No Tenderness Neurological: Normal Speech, Strength at 5/5 X4 Ext, Normal Tone, Sensation Intact, Cranial Nerves 3-12 NL Extremities: No Clubbing, No Cyanosis, 2 + pitting edema of the left foot Vascular: Normal Pulses Assessment/Plan Assessment: 82 years old female with past medical history of hypertension, hyperlipidemia, coronary artery disease, [place], vertigo GERD presented to the ER by EMS after having unwitnessed fall yesterday, the patient reports that she was in her usual state of health yesterday, she had been up in the afternoon, she woke up around 2 PM, she was in her kitchen cleaning when her walker tripped over her stool and she fell down, the patient was on the floor trying to get up however she kept falling asleep multiple times and was not able to get up all night, she was on the floor since 8 PM to 9 AM. Most likely her fall was mechanical however there is a possibility for side effect of her pain meds including Percocet and fentanyl patch, cardiological causes of syncope has to be ruled out given his past cardiac history, CT head which ruled out acute intracranial pathology and Doppler lower extremity were negative which ruled out DVT #Fall #Elevated CPK #ALEXA on CKD #History of hypertension, hyperlipidemia, CAD, vertigo #Depression # skin tear on the coccyx present on admission Plan: Monitor on telemetry Vitals every shift Close monitoring of I's and O's Follow up on cardiology recommendation PT evaluation VQ scan ruled out PE Encourage oral intake Continue home meds Social work consult appreciated wound care consult appreciated Patient is stable to be discharged to [facility] today Full code DVT prophylaxis with subcutaneous heparin Heart healthy diet Problem List: 1. Syncope and collapse Pain Ratin Pain Location: Left leg Pain Goal: Remain pain free Pain Plan: pathway Tomorrow's Labs & Rationales: N/A
--- NOTE | 2017-05-22 10:43 | PN- Att Addend ---
Attending Addendum Attending Brief Note Mrs. Irizarry was interviewed and examined. Her EMR was reviewed. She has been asymptomatic overnight and only notes her chronic leg pain. She is afebrile with satisfactory heart and respiratory rates. Blood pressures are also stable. She has had no arrhythmias. Her physical exam is benign. Review of her laboratory values show similar also to be satisfactory. At this time she is stable to be transferred to short-term rehabilitation.
[2017-05-22 13:15] VITALS: BP 118/62
== END 2017-05-22 15:02 | DRG 683 ==
LOC: ERH 10:22 → 1NO 14:54 → ERHI 14:54 → ENRESERV 15:53 → ENTRNSPT 16:57 → EDTRNSPTSTS 17:05 → EDTRNSPT 17:05 → 1NO 17:15 → CMPTRNSPT 17:23 → ENPENDDIS 05-22 13:12 → 1NO 05-22 15:02
PROVIDERS: Emergency Medicine; Internal Medicine Adolescent Medicine; Student in an Organized Health Care Education/Training Program
DX: N17.9 Acute kidney failure, unspecified (principal); I42.9 Cardiomyopathy, unspecified; E86.0 Dehydration; R55 Syncope and collapse; M48.00 Spinal stenosis, site unspecified; F32.9 Major depressive disorder, single episode, unspecified; S31.809A Unspecified open wound of unspecified buttock, initial encounter; E78.5 Hyperlipidemia, unspecified; I25.10 Atherosclerotic heart disease of native coronary artery without angina pectoris; I25.2 Old myocardial infarction; K21.9 Gastro-esophageal reflux disease without esophagitis; R42 Dizziness and giddiness; Z79.82 Long term (current) use of aspirin; F41.9 Anxiety disorder, unspecified; M54.9 Dorsalgia, unspecified; W18.30XA Fall on same level, unspecified, initial encounter; M19.90 Unspecified osteoarthritis, unspecified site; Y92.090 Kitchen in other non-institutional residence as the place of occurrence of the external cause; Z91.040 Latex allergy status; Z90.49 Acquired absence of other specified parts of digestive tract; Z86.03 Personal history of neoplasm of uncertain behavior; Z96.652 Presence of left artificial knee joint; R74.8 Abnormal levels of other serum enzymes
CPT/HCPCS: 1NSP; 36592; 71045; 78582; 80307; 81001; 81003; 82436; 87086; 87147; 93005; 93010; 97161-GP; 97530-GO; 99232; A9540; A9558; J3490